=== PATIENT | female | born 1970 | race Caucasian/White ===

== ENCOUNTER 2018-01-17 19:40 | Emergency (ER) | payer OTHER, SELFPAY ==
[2018-01-17 19:53] VITALS: BP 127/80; PULSE 90; RESP 14; TEMP 36.3; O2SAT 100; BMI 27.8
[2018-01-17 20:05] LABS: Bacteria Urine None Seen; RBC Urine None Seen (0-5/HPF); WBC Urine None Seen (0-5/HPF)
--- NOTE | 2018-01-17 20:08 | DI.CT.S_ITS ---
PROCEDURE: CT KIDNEY URETER BLADDER (KUB) INDICATIONS: L. flank/pelvic pain TECHNIQUE: Noncontrast 5 mm thick sections acquired from the diaphragms to the symphysis. 5 mm thick coronal and sagittal reformats were then performed. For radiation dose reduction, the following was used: automated exposure control, adjustment of mA and/or kV according to patient size. COMPARISON: None. FINDINGS: Image quality: Excellent. Lung bases: There is mild dependent atelectasis bilaterally. Heart size is normal. Urinary system: Both kidneys are normal in size. There is a punctate nonobstructing stone within the lower pole of the left kidney. No hydronephrosis or perinephric fat stranding. Both ureters appear non-dilated throughout their expected courses. Bladder wall thickness is normal; no calcified bladder stones. Other solid organs: Liver is normal in size. Gallbladder is nondistended. Pancreas is normal in contours. Spleen is at the upper limits of normal in size measuring up to 12.7 cm. No adrenal nodules. Peritoneum and bowel: Unenhanced bowel loops demonstrate normal wall thickness and caliber. No evidence of appendicitis. No free fluid or air. Nodes and vessels: No retroperitoneal or mesenteric adenopathy by size criteria. Aorta and inferior vena cava are normal in caliber. Abdominal wall: No ventral hernias. Pelvis: The uterus is mildly prominent in size. No free pelvic fluid. No inguinal hernias or adenopathy. Bones: No suspicious bony lesions. No vertebral body compression fractures. IMPRESSION: 1. Punctate nonobstructing left renal stone. No evidence of obstructive uropathy. 2. Borderline splenomegaly. Dictated by: Josep Grubbs M.D. on 01/17/2018 at 20:47 Approved by: Josep Grubbs M.D. on 01/17/2018 at 20:54
--- NOTE | 2018-01-17 20:08 | DI.US.S_ITS ---
PROCEDURE: US PELVIC COMPLETE INDICATIONS: Left lower quadrant pain/menstrual changes TECHNIQUE: Real-time scanning was performed of the pelvic organs, with image documentation. Additional endovaginal scanning was necessary due to incomplete visualization of the adnexal and endometrial structures by transabdominal scanning. COMPARISON: None. FINDINGS: Transabdominal scanning: Limited scanning through the kidneys shows no hydronephrosis. No pathologic free abdominal or pelvic fluid. Endovaginal scanning: Uterus: Uterus is normal in size at 7.2 x 4.9 x 6.0 cm. The endometrium measures 3 mm in combined thickness. Ovaries: The right ovary was not visualized. No adnexal mass identified. Left ovary measures 1.6 x 1.5 x 3.7 cm with a few small follicles noted. There is patent arterial flow demonstrated within the left ovary. IMPRESSION: 1. Normal sonographic appearance of the left ovary. No evidence of ovarian torsion. Dictated by: Josep Grubbs M.D. on 01/17/2018 at 21:33 Approved by: Josep Grubbs M.D. on 01/17/2018 at 21:36
--- NOTE | 2018-01-17 20:11 | ED.ABDPAIN ---
HPI - Abdominal Pain <Tamia Elena PA-C - Last Filed: 01/17/18 21:59> General Chief Complaint: Abdominal Pain Stated Complaint: PAIN IN BACK AND STOMACH Time Seen by Provider: 01/17/18 20:08 Source: patient Mode of arrival: ambulatory Limitations: no limitations History of Present Illness HPI narrative: This 47-year-old female comes in due to persistent left flank and abdominal pain. She states this started 1 week ago along with urinary frequency. By 2 days later she had developed cold chills and felt bloated. She took [id number] azo and was seen at her PCM office. Advise no UTI. She states that she had continued symptoms and went back on Saturday, still abnormality found. She states that Saturday night she started to have a very heavy period, going through pad every 30 min with blood clots the 1st day. She states that she had some fatigue, lightheadedness and nausea with this. She states this lasted through yesterday, stopped abruptly today when usually her menses last for 5 days and are not this heavy. She states she was seen a 3rd time at her PCM office today. She has continued left flank pain which she can also feel in the pelvis. She has continued urinary frequency and urgency but has never had any dysuria. She has had chills without fever. She has had nausea but no vomiting. She states that she feels very tired but denies shortness of breath, chest pain, new pain in the extremities or other new symptoms on systems review. She was seen by her PCM again today. She had lab work, no specific abnormalities found though she states has been borderline anemic. She has had thyroid tested she states. She denies any other new complaints or symptoms on systems review, states no further imaging or testing was available at [facility] so came here. She denies possibility of pG ( has vas) and states she has had heavy menses with clots x 3 mos now (atypical) Related Data Home Medications Medication Instructions Recorded Confirmed levothyroxine 75 mcg PO DAILY 01/17/18 01/17/18 Allergies Allergy/AdvReac Type Severity Reaction Status Date / Time Sulfa (Sulfonamide Allergy Severe RASH, Verified 01/17/18 19:53 Antibiotics) VOMITING [SULFA (SULFONAMIDE ANTIBIOTICS)] morphine [MORPHINE] Allergy Intermediate VOMITING Verified 01/17/18 19:53 Review of Systems <Tamia Elena PA-C - Last Filed: 01/17/18 21:59> Review of Systems All systems reviewed & are unremarkable except as noted in HPI and below Exam <Tamia Elena PA-C - Last Filed: 01/17/18 21:59> Narrative Exam Narrative: GENERAL APPEARANCE: Patient sitting comfortably, in no distress. HEENT: PERRL, EOMI, no scleral icterus, conjunctivae pink NECK: Supple LUNGS: Clear to auscultation bilaterally. HEART: Rate and rhythm regular, normal S1 and S2, no S3 or S4. ABDOMEN: Soft, nondistended, bowel sounds present x 4 quadrants, no masses palpable, no hepatosplenomegaly. Moderate left CVAT and suprapubic tenderness without guarding or rebound EXTREMITIES: No edema, no cyanosis DERMATOLOGIC: No jaundice or exanthem NEUROLOGIC: Alert and oriented with normal speech and coordination Initial Vital Signs Initial Vital Signs: Vital Signs Temperature 97.3 F L 01/17/18 19:53 Pulse Rate 90 01/17/18 19:53 Respiratory Rate 14 01/17/18 19:53 Blood Pressure 127/80 H 01/17/18 19:53 Pulse Oximetry 100 01/17/18 19:53 <Raul West MD - Last Filed: 02/21/18 08:17> Initial Vital Signs Initial Vital Signs: Vital Signs Temperature 97.3 F L 01/17/18 19:53 Pulse Rate 90 01/17/18 19:53 Respiratory Rate 14 01/17/18 19:53 Blood Pressure 127/80 H 01/17/18 19:53 Pulse Oximetry 100 01/17/18 19:53 Course <Tamia Elena PA-C - Last Filed: 01/17/18 21:59> Hospital Course: Patient reported improvement in pain during her stay. She declined antiemetic because she had 1 many years ago that caused worse nausea and not sure what it was. She did not have any vomiting while here. She states that pelvic area pain has improved significantly after menses stopped, flank pain is chronically present at least at low level. She will follow up with primary care provider on this next week for further evaluation. Also advised to see gynecology for menorrhagia. She is agreeable with plan and will return if any acutely worsening symptoms over the weekend Orders Ordered: Discontinued Medications Sodium Chloride (Normal Saline 0.9%) 1,000 mls @ 1,000 mls/hr IV BOLUS ONE Stop: 01/17/18 21:07 Last Infusion: 01/17/18 21:47 Dose: 0 mls/hr Admin: 01/17/18 20:30 Dose: 1,000 mls/hr Ketorolac Tromethamine (Toradol) 30 mg IV NOW ONE Stop: 01/17/18 20:09 Last Admin: 01/17/18 20:29 Dose: 30 mg Ondansetron HCl (Zofran) 4 mg IV NOW ONE Stop: 01/17/18 20:09 Last Admin: 01/17/18 20:30 Dose: Not Given Vital Signs - 8 hr 01/17/18 19:53 Temperature 97.3 F L Pulse Rate 90 Respiratory Rate 14 Blood Pressure 127/80 H Pulse Oximetry 100 <Raul West MD - Last Filed: 02/21/18 08:17> Orders Ordered: Discontinued Medications Sodium Chloride (Normal Saline 0.9%) 1,000 mls @ 1,000 mls/hr IV BOLUS ONE Stop: 01/17/18 21:07 Last Infusion: 01/17/18 21:47 Dose: 0 mls/hr Admin: 01/17/18 20:30 Dose: 1,000 mls/hr Ketorolac Tromethamine (Toradol) 30 mg IV NOW ONE Stop: 01/17/18 20:09 Last Admin: 01/17/18 20:29 Dose: 30 mg Ondansetron HCl (Zofran) 4 mg IV NOW ONE Stop: 01/17/18 20:09 Last Admin: 01/17/18 20:30 Dose: Not Given Vital Signs - 8 hr 01/17/18 19:53 Temperature 97.3 F L Pulse Rate 90 Respiratory Rate 14 Blood Pressure 127/80 H Pulse Oximetry 100 MDM - Abdominal Pain <Tamia Elena PA-C - Last Filed: 01/17/18 21:59> Lab Data Attestation: I reviewed the patient's lab results. POC urinalysis WNL, urine negative Result diagrams: 01/17/18 20:15 01/17/18 20:15 Lab Results 01/17/18 01/17/18 01/17/18 Range/Units 19:45 20:15 20:15 WBC 7.3 (4.5-11.0) X10^3/uL RBC 4.21 (4.0-5.2) X10^6/uL Hgb 11.1 L (12.0-16.0) g/dL Hct 33.4 L (36-46) % MCV 79.3 L (80-100) fL MCH 26.5 (26-34) PG MCHC 33.4 (30-36) % RDW 15.6 H (11.6-14.8) % Plt Count 238 (150-400) X10^3/uL Neut % (Auto) 58.5 (50-75) % Lymph % (Auto) 29.6 (25-40) % Ray % (Auto) 7.5 (3-14) % Eos % (Auto) 3.1 (2-4) % Baso % (Auto) 1.3 (0-2) % Neut # (Auto) 4200 (5079-2583) /uL Sodium 137 (137-145) mmol/L Potassium 3.5 (3.4-5.1) mmol/L Chloride 101 (98-107) mmol/L Carbon Dioxide 26 (22-32) mmol/L BUN 10 (7-17) mg/dL Creatinine 0.70 (0.52-1.04) mg/dL Estimated GFR > 60.0 (>60) mL/min BUN/Creatinine Ratio 14.3 (6-22) Glucose 93 (70-100) mg/dL Calcium 9.2 (8.4-10.2) mg/dL Total Bilirubin 0.4 (0.2-1.3) mg/dL AST 22 (14-36) IU/L ALT 29 (9-52) IU/L Alkaline Phosphatase 44 (38-126) U/L Total Protein 7.2 (6.3-8.2) g/dL Albumin 4.0 (3.5-5.0) g/dL Globulin 3.2 (1.7-4.1) g/dL Albumin/Globulin Ratio 1.3 (1.0-2.8) Lipase 86 (23-300) U/L Urine RBC None seen (0-5/HPF) Urine WBC None seen (0-5/HPF) Ur Squamous Epith Cells 0-1 /hpf Urine Bacteria None seen (None) Ur Culture Indicated? Cult not indicated Micro UA Comment Microscopic normal Imaging Data CT scan - abdomen: Radiologist's impression: View Report History [address] [address] [address] Scan Report Signed Patient: Mallory Lenz MR#: [id number] : 1970 Acct:[id number] Age/Sex: 47 / F Date of Service: 01/17/18 Loc: ED Accession Number: [id number] Procedure: CT kidney ureter bladder (KUB) Ordering Provider: Tamia Elena P.A-C PROCEDURE: CT KIDNEY URETER BLADDER (KUB) INDICATIONS: L. flank/pelvic pain TECHNIQUE: Noncontrast 5 mm thick sections acquired from the diaphragms to the symphysis. 5 mm thick coronal and sagittal reformats were then performed. For radiation dose reduction, the following was used: automated exposure control, adjustment of mA and/or kV according to patient size. COMPARISON: None. FINDINGS: Image quality: Excellent. Lung bases: There is mild dependent atelectasis bilaterally. Heart size is normal. Urinary system: Both kidneys are normal in size. There is a punctate nonobstructing stone within the lower pole of the left kidney. No hydronephrosis or perinephric fat stranding. Both ureters appear non-dilated throughout their expected courses. Bladder wall thickness is normal; no calcified bladder stones. Other solid organs: Liver is normal in size. Gallbladder is nondistended. Pancreas is normal in contours. Spleen is at the upper limits of normal in size measuring up to 12.7 cm. No adrenal nodules. Peritoneum and bowel: Unenhanced bowel loops demonstrate normal wall thickness and caliber. No evidence of appendicitis. No free fluid or air. Nodes and vessels: No retroperitoneal or mesenteric adenopathy by size criteria. Aorta and inferior vena cava are normal in caliber. Abdominal wall: No ventral hernias. Pelvis: The uterus is mildly prominent in size. No free pelvic fluid. No inguinal hernias or adenopathy. Bones: No suspicious bony lesions. No vertebral body compression fractures. IMPRESSION: 1. Punctate nonobstructing left renal stone. No evidence of obstructive uropathy. 2. Borderline splenomegaly. Dictated by: Josep Grubbs M.D. on 01/17/2018 at 20:47 Approved by: Josep Grubbs M.D. on 01/17/2018 at 20:54 pelvis: Radiologist's impression: View Report History [address] [address] Ultrasound Report Signed Patient: Mallory Lenz MR#: [id number] : 1970 Acct:[id number] Age/Sex: 47 / F Date of Service: 01/17/18 Loc: ED Accession Number: [id number] Procedure: US pelvic complete Ordering Provider: Tamia Elena P.A-C PROCEDURE: US PELVIC COMPLETE INDICATIONS: Left lower quadrant pain/menstrual changes TECHNIQUE: Real-time scanning was performed of the pelvic organs, with image documentation. Additional endovaginal scanning was necessary due to incomplete visualization of the adnexal and endometrial structures by transabdominal scanning. COMPARISON: None. FINDINGS: Transabdominal scanning: Limited scanning through the kidneys shows no hydronephrosis. No pathologic free abdominal or pelvic fluid. Endovaginal scanning: Uterus: Uterus is normal in size at 7.2 x 4.9 x 6.0 cm. The endometrium measures 3 mm in combined thickness. Ovaries: The right ovary was not visualized. No adnexal mass identified. Left ovary measures 1.6 x 1.5 x 3.7 cm with a few small follicles noted. There is patent arterial flow demonstrated within the left ovary. IMPRESSION: 1. Normal sonographic appearance of the left ovary. No evidence of ovarian torsion. Dictated by: Josep Grubbs M.D. on 01/17/2018 at 21:33 Approved by: Josep Grubbs M.D. on 01/17/2018 at 21:36 <Raul West MD - Last Filed: 02/21/18 08:17> Lab Data Lab Results 01/17/18 01/17/18 01/17/18 Range/Units 19:45 20:15 20:15 WBC 7.3 (4.5-11.0) X10^3/uL RBC 4.21 (4.0-5.2) X10^6/uL Hgb 11.1 L (12.0-16.0) g/dL Hct 33.4 L (36-46) % MCV 79.3 L (80-100) fL MCH 26.5 (26-34) PG MCHC 33.4 (30-36) % RDW 15.6 H (11.6-14.8) % Plt Count 238 (150-400) X10^3/uL Neut % (Auto) 58.5 (50-75) % Lymph % (Auto) 29.6 (25-40) % Ray % (Auto) 7.5 (3-14) % Eos % (Auto) 3.1 (2-4) % Baso % (Auto) 1.3 (0-2) % Neut # (Auto) 4200 (3398-0989) /uL Sodium 137 (137-145) mmol/L Potassium 3.5 (3.4-5.1) mmol/L Chloride 101 (98-107) mmol/L Carbon Dioxide 26 (22-32) mmol/L BUN 10 (7-17) mg/dL Creatinine 0.70 (0.52-1.04) mg/dL Estimated GFR > 60.0 (>60) mL/min BUN/Creatinine Ratio 14.3 (6-22) Glucose 93 (70-100) mg/dL Calcium 9.2 (8.4-10.2) mg/dL Total Bilirubin 0.4 (0.2-1.3) mg/dL AST 22 (14-36) IU/L ALT 29 (9-52) IU/L Alkaline Phosphatase 44 (38-126) U/L Total Protein 7.2 (6.3-8.2) g/dL Albumin 4.0 (3.5-5.0) g/dL Globulin 3.2 (1.7-4.1) g/dL Albumin/Globulin Ratio 1.3 (1.0-2.8) Lipase 86 (23-300) U/L Urine RBC None seen (0-5/HPF) Urine WBC None seen (0-5/HPF) Ur Squamous Epith Cells 0-1 /hpf Urine Bacteria None seen (None) Ur Culture Indicated? Cult not indicated Micro UA Comment Microscopic normal Discharge Plan Departure Patient Disposition: Home, Self-Care Clinical Impression: Acute left flank pain, Menorrhagia Discharge Date/Time: 01/17/18 22:05 Interventions: ED Discharge Assessment Last Done: 01/17/18 22:02 Instructions: DI for Menorrhagia, DI for Flank Pain Activity Restrictions/Additional Instructions: Return as we talked about if you have any acutely worsening symptoms. From your evaluation tonight, it does not appear as though you have any acute surgical issue going on. You do have a tiny kidney stone on the left, however this is not necessarily the source of your pain and should pass on its own. You have some ovarian follicles where there could have been a cyst that ruptured, but there is no cyst or mass there now to explain your pain. Since you have had these unusually heavy periods for several months, you should follow up with your medical records custodian for further evaluation. You should also follow up with your primary hospice care consultant on the flank pain unless it resolves on its own over the weekend. Please continue over the counter pain medicine as needed. Prescriptions: No Action levothyroxine 75 mcg Tablet 75 mcg PO DAILY RF: 0 Referrals: [facility] [Provider Group] <Raul West MD - Last Filed: 02/21/18 08:17> Sign Out Provider Sign Out Attestation: The PA/ACCOUNTANT BOOKKEEPER functioned independently for the care of this pt, I was available, but not asked to participate in care. I am unable to determine appropriateness of management without personally examining the pt.
--- NOTE | 2018-01-17 20:18 | ED_ITS ---
HPI - Abdominal Pain <Tamia Elena PA-C - Last Filed: 01/17/18 21:59> General Chief Complaint: Abdominal Pain Stated Complaint: PAIN IN BACK AND STOMACH Time Seen by Provider: 01/17/18 20:08 Source: patient Mode of arrival: ambulatory Limitations: no limitations History of Present Illness HPI narrative: This 47-year-old female comes in due to persistent left flank and abdominal pain. She states this started 1 week ago along with urinary frequency. By 2 days later she had developed cold chills and felt bloated. She took [id number] azo and was seen at her PCM office. Advise no UTI. She states that she had continued symptoms and went back on Saturday, still abnormality found. She states that Saturday night she started to have a very heavy period, going through pad every 30 min with blood clots the 1st day. She states that she had some fatigue, lightheadedness and nausea with this. She states this lasted through yesterday, stopped abruptly today when usually her menses last for 5 days and are not this heavy. She states she was seen a 3rd time at her PCM office today. She has continued left flank pain which she can also feel in the pelvis. She has continued urinary frequency and urgency but has never had any dysuria. She has had chills without fever. She has had nausea but no vomiting. She states that she feels very tired but denies shortness of breath, chest pain, new pain in the extremities or other new symptoms on systems review. She was seen by her PCM again today. She had lab work, no specific abnormalities found though she states has been borderline anemic. She has had thyroid tested she states. She denies any other new complaints or symptoms on systems review, states no further imaging or testing was available at [facility] so came here. She denies possibility of pG ( has vas) and states she has had heavy menses with clots x 3 mos now (atypical) Related Data Home Medications Medication Instructions Recorded Confirmed levothyroxine 75 mcg PO DAILY 01/17/18 01/17/18 Allergies Allergy/AdvReac Type Severity Reaction Status Date / Time Sulfa (Sulfonamide Allergy Severe RASH, Verified 01/17/18 19:53 Antibiotics) VOMITING [SULFA (SULFONAMIDE ANTIBIOTICS)] morphine [MORPHINE] Allergy Intermediate VOMITING Verified 01/17/18 19:53 Review of Systems <Tamia Elena PA-C - Last Filed: 01/17/18 21:59> Review of Systems All systems reviewed & are unremarkable except as noted in HPI and below Exam <Tamia Elena PA-C - Last Filed: 01/17/18 21:59> Narrative Exam Narrative: GENERAL APPEARANCE: Patient sitting comfortably, in no distress. HEENT: PERRL, EOMI, no scleral icterus, conjunctivae pink NECK: Supple LUNGS: Clear to auscultation bilaterally. HEART: Rate and rhythm regular, normal S1 and S2, no S3 or S4. ABDOMEN: Soft, nondistended, bowel sounds present x 4 quadrants, no masses palpable, no hepatosplenomegaly. Moderate left CVAT and suprapubic tenderness without guarding or rebound EXTREMITIES: No edema, no cyanosis DERMATOLOGIC: No jaundice or exanthem NEUROLOGIC: Alert and oriented with normal speech and coordination Initial Vital Signs Initial Vital Signs: Vital Signs Temperature 97.3 F L 01/17/18 19:53 Pulse Rate 90 01/17/18 19:53 Respiratory Rate 14 01/17/18 19:53 Blood Pressure 127/80 H 01/17/18 19:53 Pulse Oximetry 100 01/17/18 19:53 <Raul West MD - Last Filed: 02/21/18 08:17> Initial Vital Signs Initial Vital Signs: Vital Signs Temperature 97.3 F L 01/17/18 19:53 Pulse Rate 90 01/17/18 19:53 Respiratory Rate 14 01/17/18 19:53 Blood Pressure 127/80 H 01/17/18 19:53 Pulse Oximetry 100 01/17/18 19:53 Course <Tamia Elena PA-C - Last Filed: 01/17/18 21:59> Hospital Course: Patient reported improvement in pain during her stay. She declined antiemetic because she had 1 many years ago that caused worse nausea and not sure what it was. She did not have any vomiting while here. She states that pelvic area pain has improved significantly after menses stopped, flank pain is chronically present at least at low level. She will follow up with primary care provider on this next week for further evaluation. Also advised to see gynecology for menorrhagia. She is agreeable with plan and will return if any acutely worsening symptoms over the weekend Orders Ordered: Discontinued Medications Sodium Chloride (Normal Saline 0.9%) 1,000 mls @ 1,000 mls/hr IV BOLUS ONE Stop: 01/17/18 21:07 Last Infusion: 01/17/18 21:47 Dose: 0 mls/hr Admin: 01/17/18 20:30 Dose: 1,000 mls/hr Ketorolac Tromethamine (Toradol) 30 mg IV NOW ONE Stop: 01/17/18 20:09 Last Admin: 01/17/18 20:29 Dose: 30 mg Ondansetron HCl (Zofran) 4 mg IV NOW ONE Stop: 01/17/18 20:09 Last Admin: 01/17/18 20:30 Dose: Not Given Vital Signs - 8 hr 01/17/18 19:53 Temperature 97.3 F L Pulse Rate 90 Respiratory Rate 14 Blood Pressure 127/80 H Pulse Oximetry 100 <Raul West MD - Last Filed: 02/21/18 08:17> Orders Ordered: Discontinued Medications Sodium Chloride (Normal Saline 0.9%) 1,000 mls @ 1,000 mls/hr IV BOLUS ONE Stop: 01/17/18 21:07 Last Infusion: 01/17/18 21:47 Dose: 0 mls/hr Admin: 01/17/18 20:30 Dose: 1,000 mls/hr Ketorolac Tromethamine (Toradol) 30 mg IV NOW ONE Stop: 01/17/18 20:09 Last Admin: 01/17/18 20:29 Dose: 30 mg Ondansetron HCl (Zofran) 4 mg IV NOW ONE Stop: 01/17/18 20:09 Last Admin: 01/17/18 20:30 Dose: Not Given Vital Signs - 8 hr 01/17/18 19:53 Temperature 97.3 F L Pulse Rate 90 Respiratory Rate 14 Blood Pressure 127/80 H Pulse Oximetry 100 MDM - Abdominal Pain <Tamia Elena PA-C - Last Filed: 01/17/18 21:59> Lab Data Attestation: I reviewed the patient's lab results. POC urinalysis WNL, urine negative Result diagrams: 01/17/18 20:15 01/17/18 20:15 Lab Results 01/17/18 01/17/18 01/17/18 Range/Units 19:45 20:15 20:15 WBC 7.3 (4.5-11.0) X10^3/uL RBC 4.21 (4.0-5.2) X10^6/uL Hgb 11.1 L (12.0-16.0) g/dL Hct 33.4 L (36-46) % MCV 79.3 L (80-100) fL MCH 26.5 (26-34) PG MCHC 33.4 (30-36) % RDW 15.6 H (11.6-14.8) % Plt Count 238 (150-400) X10^3/uL Neut % (Auto) 58.5 (50-75) % Lymph % (Auto) 29.6 (25-40) % [place] % (Auto) 7.5 (3-14) % Eos % (Auto) 3.1 (2-4) % Baso % (Auto) 1.3 (0-2) % Neut # (Auto) 4200 (9294-7078) /uL Sodium 137 (137-145) mmol/L Potassium 3.5 (3.4-5.1) mmol/L Chloride 101 (98-107) mmol/L Carbon Dioxide 26 (22-32) mmol/L BUN 10 (7-17) mg/dL Creatinine 0.70 (0.52-1.04) mg/dL Estimated GFR > 60.0 (>60) mL/min BUN/Creatinine Ratio 14.3 (6-22) Glucose 93 (70-100) mg/dL Calcium 9.2 (8.4-10.2) mg/dL Total Bilirubin 0.4 (0.2-1.3) mg/dL AST 22 (14-36) IU/L ALT 29 (9-52) IU/L Alkaline Phosphatase 44 (38-126) U/L Total Protein 7.2 (6.3-8.2) g/dL Albumin 4.0 (3.5-5.0) g/dL Globulin 3.2 (1.7-4.1) g/dL Albumin/Globulin Ratio 1.3 (1.0-2.8) Lipase 86 (23-300) U/L Urine RBC None seen (0-5/HPF) Urine WBC None seen (0-5/HPF) Ur Squamous Epith Cells 0-1 /hpf Urine Bacteria None seen (None) Ur Culture Indicated? Cult not indicated Micro UA Comment Microscopic normal Imaging Data CT scan - abdomen: Radiologist's impression: View Report History [address] [address] [address] Scan Report Signed Patient: Mallory Lenz MR#: [id number] : 1970 Acct:[id number] Age/Sex: 47 / F Date of Service: 01/17/18 Loc: ED Accession Number: [id number] Procedure: CT kidney ureter bladder (KUB) Ordering Provider: Tamia Elena P.A-C PROCEDURE: CT KIDNEY URETER BLADDER (KUB) INDICATIONS: L. flank/pelvic pain TECHNIQUE: Noncontrast 5 mm thick sections acquired from the diaphragms to the symphysis. 5 mm thick coronal and sagittal reformats were then performed. For radiation dose reduction, the following was used: automated exposure control, adjustment of mA and/or kV according to patient size. COMPARISON: None. FINDINGS: Image quality: Excellent. Lung bases: There is mild dependent atelectasis bilaterally. Heart size is normal. Urinary system: Both kidneys are normal in size. There is a punctate nonobstructing stone within the lower pole of the left kidney. No hydronephrosis or perinephric fat stranding. Both ureters appear non-dilated throughout their expected courses. Bladder wall thickness is normal; no calcified bladder stones. Other solid organs: Liver is normal in size. Gallbladder is nondistended. Pancreas is normal in contours. Spleen is at the upper limits of normal in size measuring up to 12.7 cm. No adrenal nodules. Peritoneum and bowel: Unenhanced bowel loops demonstrate normal wall thickness and caliber. No evidence of appendicitis. No free fluid or air. Nodes and vessels: No retroperitoneal or mesenteric adenopathy by size criteria. Aorta and inferior vena cava are normal in caliber. Abdominal wall: No ventral hernias. Pelvis: The uterus is mildly prominent in size. No free pelvic fluid. No inguinal hernias or adenopathy. Bones: No suspicious bony lesions. No vertebral body compression fractures. IMPRESSION: 1. Punctate nonobstructing left renal stone. No evidence of obstructive uropathy. 2. Borderline splenomegaly. Dictated by: Josep Grubbs M.D. on 01/17/2018 at 20:47 Approved by: Josep Grubbs M.D. on 01/17/2018 at 20:54 pelvis: Radiologist's impression: View Report History [address] [address] Ultrasound Report Signed Patient: Mallory Lenz MR#: [id number] : 1970 Acct:[id number] Age/Sex: 47 / F Date of Service: 01/17/18 Loc: ED Accession Number: [id number] Procedure: US pelvic complete Ordering Provider: Tamia Elena P.A-C PROCEDURE: US PELVIC COMPLETE INDICATIONS: Left lower quadrant pain/menstrual changes TECHNIQUE: Real-time scanning was performed of the pelvic organs, with image documentation. Additional endovaginal scanning was necessary due to incomplete visualization of the adnexal and endometrial structures by transabdominal scanning. COMPARISON: None. FINDINGS: Transabdominal scanning: Limited scanning through the kidneys shows no hydronephrosis. No pathologic free abdominal or pelvic fluid. Endovaginal scanning: Uterus: Uterus is normal in size at 7.2 x 4.9 x 6.0 cm. The endometrium measures 3 mm in combined thickness. Ovaries: The right ovary was not visualized. No adnexal mass identified. Left ovary measures 1.6 x 1.5 x 3.7 cm with a few small follicles noted. There is patent arterial flow demonstrated within the left ovary. IMPRESSION: 1. Normal sonographic appearance of the left ovary. No evidence of ovarian torsion. Dictated by: Josep Grubbs M.D. on 01/17/2018 at 21:33 Approved by: Josep Grubbs M.D. on 01/17/2018 at 21:36 <Raul West MD - Last Filed: 02/21/18 08:17> Lab Data Lab Results 01/17/18 01/17/18 01/17/18 Range/Units 19:45 20:15 20:15 WBC 7.3 (4.5-11.0) X10^3/uL RBC 4.21 (4.0-5.2) X10^6/uL Hgb 11.1 L (12.0-16.0) g/dL Hct 33.4 L (36-46) % MCV 79.3 L (80-100) fL MCH 26.5 (26-34) PG MCHC 33.4 (30-36) % RDW 15.6 H (11.6-14.8) % Plt Count 238 (150-400) X10^3/uL Neut % (Auto) 58.5 (50-75) % Lymph % (Auto) 29.6 (25-40) % [place] % (Auto) 7.5 (3-14) % Eos % (Auto) 3.1 (2-4) % Baso % (Auto) 1.3 (0-2) % Neut # (Auto) 4200 (6780-2938) /uL Sodium 137 (137-145) mmol/L Potassium 3.5 (3.4-5.1) mmol/L Chloride 101 (98-107) mmol/L Carbon Dioxide 26 (22-32) mmol/L BUN 10 (7-17) mg/dL Creatinine 0.70 (0.52-1.04) mg/dL Estimated GFR > 60.0 (>60) mL/min BUN/Creatinine Ratio 14.3 (6-22) Glucose 93 (70-100) mg/dL Calcium 9.2 (8.4-10.2) mg/dL Total Bilirubin 0.4 (0.2-1.3) mg/dL AST 22 (14-36) IU/L ALT 29 (9-52) IU/L Alkaline Phosphatase 44 (38-126) U/L Total Protein 7.2 (6.3-8.2) g/dL Albumin 4.0 (3.5-5.0) g/dL Globulin 3.2 (1.7-4.1) g/dL Albumin/Globulin Ratio 1.3 (1.0-2.8) Lipase 86 (23-300) U/L Urine RBC None seen (0-5/HPF) Urine WBC None seen (0-5/HPF) Ur Squamous Epith Cells 0-1 /hpf Urine Bacteria None seen (None) Ur Culture Indicated? Cult not indicated Micro UA Comment Microscopic normal Discharge Plan Departure Patient Disposition: Home, Self-Care Clinical Impression: Acute left flank pain, Menorrhagia Discharge Date/Time: 01/17/18 22:05 Interventions: ED Discharge Assessment Last Done: 01/17/18 22:02 Instructions: DI for Menorrhagia, DI for Flank Pain Activity Restrictions/Additional Instructions: Return as we talked about if you have any acutely worsening symptoms. From your evaluation tonight, it does not appear as though you have any acute surgical issue going on. You do have a tiny kidney stone on the left, however this is not necessarily the source of your pain and should pass on its own. You have some ovarian follicles where there could have been a cyst that ruptured, but there is no cyst or mass there now to explain your pain. Since you have had these unusually heavy periods for several months, you should follow up with your finance lecturer for further evaluation. You should also follow up with your primary customer care team coach on the flank pain unless it resolves on its own over the weekend. Please continue over the counter pain medicine as needed. Prescriptions: No Action levothyroxine 75 mcg Tablet 75 mcg PO DAILY RF: 0 [facility]] <Raul West MD - Last Filed: 02/21/18 08:17> Sign Out Provider Sign Out Attestation: The PA/PREBOARDER functioned independently for the care of this pt, I was available, but not asked to participate in care. I am unable to determine appropriateness of management without personally examining the pt.
[2018-01-17 20:22] LABS: Add Manual Diff / Slide Review NO; Basophils Percent Auto 1.3 % (0-2); Eosinophils Percent Auto 3.1 % (2-4); Hematocrit 33.4 % (36-46); Hemoglobin 11.1 g/dL (12.0-16.0); Lymphocytes Percent Auto 29.6 % (25-40); Mean Corpuscular HGB Conc 33.4 % (30-36); Mean Corpuscular Hemoglobin 26.5 PG (26-34); Mean Corpuscular Volume 79.3 fL (80-100); Monocytes Percent Auto 7.5 % (3-14); Neutrophils Absolute Auto 4200 /uL (3000-5900); Neutrophils Percent Auto 58.5 % (50-75); Platelet Count 238 X10^3/uL (150-400); Red Blood Cell Count 4.21 X10^6/uL (4.0-5.2); Red Cell Distribution Width 15.6 % (11.6-14.8); White Blood Cell Count 7.3 X10^3/uL (4.5-11.0)
[2018-01-17 20:27] LABS: Culture Indicated Urine Cult Not Indicated; Squamous Epithelial Cell Urine 0-1 /HPF; Urine Comments Microscopic Normal
[2018-01-17] MEDS: KETOROLAC 60 MG/2 ML VIAL 30 MG IV (20:29)
[2018-01-17] MEDS: SODIUM CHLORIDE 0.9% 1,000 ML 1000 ML IV (20:30)
[2018-01-17 20:35] LABS: Alanine Aminotransferase 29 IU/L (9-52); Albumin Globulin Ratio 1.3 (1.0-2.8); Alkaline Phosphatase 44 U/L (38-126); Aspartate Aminotransferase 22 IU/L (14-36); BUN Creatinine Ratio 14.3 (6-22); Bilirubin Total 0.4 mg/dL (0.2-1.3); Blood Urea Nitrogen 10 mg/dL (7-17); Calcium 9.2 mg/dL (8.4-10.2); Carbon Dioxide 26 mmol/L (22-32); Chloride 101 mmol/L (98-107); Estimated Glomerular Filt Rate > 60.0 mL/min (>60); Globulin 3.2 g/dL (1.7-4.1); Glucose 93 mg/dL (70-100); HEMOLYSIS < 15 (0-50); Lipase 86 U/L (23-300); Potassium 3.5 mmol/L (3.4-5.1); Sodium 137 mmol/L (137-145); Total Protein 7.2 g/dL (6.3-8.2)
[2018-01-17 22:02] VITALS: BP 115/70; PULSE 63; RESP 15; O2SAT 98
== END 2018-01-17 22:05 | disposition home or self-care (01) ==
PROVIDERS: Emergency Medicine; Emergency Provider Internal Medicine
DX: R10.9 Unspecified abdominal pain (principal); N92.0 Excessive and frequent menstruation with regular cycle
CPT/HCPCS: 36591; 74176; 76830; 76856; 80053; 81003; 81015; 81025; 83690; 85025; 96361; 96374; 96375; 99283; 99284; J1885

== ENCOUNTER 2019-04-26 08:42 | Emergency (ER) | payer OTHER, SELFPAY ==
[2019-04-26] VITALS (7 sets, daily range): BP systolic 107–127; BP diastolic 59–93; PULSE 68–88; RESP 9–21; TEMP 36.8; O2SAT 98–100; BMI 29.9
--- NOTE | 2019-04-26 08:43 | ED_ITS ---
HPI - Chest Pain General Chief Complaint: Chest Pain Stated Complaint: Chest pain Time Seen by Provider: 04/26/19 08:42 Source: patient Mode of arrival: Ambulatory Limitations: no limitations History of Present Illness HPI narrative: 49-year-old female nonsmoker with history of hypothyroid presents with sharp stabbing anterior chest pain since about 2am. She states it woke her up. She denies provocation or palliation. She denies associated symptoms such as dizziness, weakness or lightheadedness. She has no diaphoresis, nausea or vomiting. She denies any recent travel, injury, surgery or history of blood sel[place] ts. She denies any recent illness, runny nose, sore throat or cough. She does state that she has had these episodes off and on for the past few months, they always happen at night. Related Data Home Medications Medication Instructions Recorded Confirmed levothyroxine 75 mcg PO DAILY 01/17/18 01/17/18 Allergies Allergy/AdvReac Type Severity Reaction Status Date / Time Sulfa (Sulfonamide Allergy Severe RASH, Verified 04/26/19 08:53 Antibiotics) VOMITING [SULFA (SULFONAMIDE ANTIBIOTICS)] morphine [MORPHINE] Allergy Intermediate VOMITING Verified 04/26/19 08:53 Review of Systems Constitutional Constitutional: Denies chills, Denies fatigue, Denies fever(s), Denies frequent falls, Denies lethargy and Denies weakness Eyes Eyes: Denies change in vision, Denies eye discharge, Denies irritation and Denies loss of vision ENT Ears, Nose, Mouth, and Throat: Denies change in voice, Denies dizziness, Denies neck pain, Denies sore throat and Denies throat swelling Cardiovascular Cardiovascular: Reports chest pain, Denies irregular heart rhythm, Denies lightheadedness, Denies palpitations, Denies dyspnea, Denies dyspnea on exertion and Denies orthopnea Respiratory Respiratory: Denies cough, Denies dyspnea, Denies dyspnea on exertion and Denies wheezing Gastrointestinal Gastrointestinal: Denies abdominal pain, Denies change in bowel habits, Denies diarrhea, Denies nausea and Denies vomiting Genitourinary Genitourinary: Denies hematuria, Denies flank pain, Denies urinary incontinence and Denies urinary urgency Musculoskeletal Musculoskeletal: Denies back pain, Denies muscle weakness, Denies neck pain, Denies numbness and Denies tingling Integumentary/Breasts Skin/Breast: Denies pruritus, Denies erythema, Denies rash and Denies wounds Neurologic Neurologic: Denies behavioral changes, Denies confusion, Denies dizziness, Denies frequent falls, Denies loss of vision, Denies numbness, Denies tingling and Denies weakness Psychiatric Psychiatric: Denies anxiety, Denies behavioral changes, Denies confusion, Denies depression, Denies homicidal ideation and Denies suicidal ideation Endocrine Endocrine: Denies fatigue, Denies flushing and Denies palpitations Hematologic/Lymphatic Hematologic/Lymphatic: Denies easy bruising Allergic/Immunologic Allergic/Immunologic: Denies urticaria, Denies throat swelling and Denies wheezing [facility] Medical History Anemia (Acute) Ankle fracture (Resolved) Graves disease (Chronic) Surgical History H/O thyroidectomy (Resolved) Social History Smoking Status: Never smoker Social History Smoking Status: Never smoker Exam Narrative Exam Narrative: GENERAL: [49] year old patient appears stated age. Well- nourished, well-developed patient, in mild distress. HEAD: Atraumatic. Normocephalic. EYES: Pupils equal round and reactive. Extraocular motions intact. No scleral icterus. No injection or drainage. ENT: Nose without bleeding, purulent drainage. Throat without erythema, t onsillar hypertrophy or exudate. Airway patent. NECK: Trachea midline. Non tender CARDIOVASCULAR: Regular rate and rhythm without murmurs, gallops, or rubs. RESPIRATORY: Clear to auscultation. Breath sounds equal bilaterally. No wheezes, rales, or rhonchi. GASTROINTESTINAL: Abdomen soft, non-tender, nondistended. EXTREMITIES: No edema or joint tenderness. BACK: Nontender without deformity or crepitance. No flank tenderness. NEURO: AOx3. SKIN: No rash or erythema of visible areas Initial Vital Signs Initial Vital Signs: Vital Signs Temperature 98.3 F 04/26/19 08:42 Pulse Rate 88 04/26/19 08:42 Respiratory Rate 18 04/26/19 08:42 Blood Pressure 127/93 H 04/26/19 08:42 Pulse Oximetry 100 04/26/19 08:42 Course Orders Ordered: ED Orders 04/26/19 09:53 US abdomen complete Stat Discontinued Medications Aspirin (Aspirin Chew) 324 mg PO NOW ONE Stop: 04/26/19 08:50 Last Admin: 04/26/19 09:23 Dose: 324 mg Documented by: HAYLEE Al Hydrox/Mg Hydrox/Simethicone 20 ml/ Lidocaine HCl 15 ml 0 ml PO NOW ONE Stop: 04/26/19 09:54 Last Admin: 04/26/19 10:29 Dose: 35 ml Documented by: HAYLEE Sodium Chloride (Normal Saline 0.9%) 1,000 mls @ 150 mls/hr IV CONT IGNACIO Last Infusion: 04/26/19 12:35 Dose: 0 mls/hr Documented by: Admin: 04/26/19 09:24 Dose: 150 mls/hr Documented by: HAYLEE Vital Signs Vital signs: Vital Signs - 8 hr 04/26/19 10:45 04/26/19 11:00 04/26/19 11:30 Pulse Rate 73 76 70 Respiratory Rate 17 18 9 L Blood Pressure [Left Arm] 115/71 111/59 L 107/65 Pulse Oximetry 100 100 100 04/26/19 11:43 Pulse Rate 68 Respiratory Rate 16 Blood Pressure [Left Arm] 107/65 Pulse Oximetry MDM - Chest Pain Lab Data Result diagrams: 04/26/19 09:00 04/26/19 09:00 Labs: Lab Results 04/26/19 04/26/19 04/26/19 Range/Units 09:00 09:00 09:00 WBC 5.7 (4.5-11.0) X10^3/uL RBC 4.30 (4.0-5.2) X10^6/uL Hgb 9.9 L (12.0-16.0) g/dL Hct 30.4 L (36-46) % MCV 70.7 L (80-100) fL MCH 23.0 L (26-34) PG MCHC 32.5 (30-36) % RDW 17.7 H (11.6-14.8) % Plt Count 279 (150-400) X10^3/uL Neut % (Auto) 59.9 (50-75) % Lymph % (Auto) 29.1 (25-40) % [place] % (Auto) 7.1 (3-14) % Eos % (Auto) 2.3 (2-4) % Baso % (Auto) 1.6 (0-2) % Neut # (Auto) 3400 (0524-0711) /uL Lymph # (Auto) 1700 (1558-9135) /uL [place] # (Auto) 400 (0-900) /uL Eos # (Auto) 100 (0-450) /uL Baso # (Auto) 100 (0-100) /uL D-Dimer < 200 (<230) ng/mL Sodium 138 (137-145) mmol/L Potassium 3.9 (3.4-5.1) mmol/L Chloride 104 (98-107) mmol/L Carbon Dioxide 24 (22-32) mmol/L BUN 11 (7-17) mg/dL Creatinine 0.70 (0.52-1.04) mg/dL Estimated GFR > 60.0 (>60) mL/min BUN/Creatinine Ratio 15.7 (6-22) Glucose 97 (70-100) mg/dL Calcium 8.9 (8.4-10.2) mg/dL Magnesium 1.9 (1.6-2.3) mg/dL Total Bilirubin 0.4 (0.2-1.3) mg/dL AST 22 (14-36) IU/L ALT 13 (9-52) IU/L Alkaline Phosphatase 48 (38-126) U/L Total Creatine Kinase 65 (30-135) U/L CK-MB (CK-2) TNP CK-MB (CK-2) Rel Index TNP Troponin I < 0.012 (0.01-0.034) ng/mL B-Natriuretic Peptide < 100 (<100) Total Protein 7.6 (6.3-8.2) g/dL Albumin 4.1 (3.5-5.0) g/dL Globulin 3.5 (1.7-4.1) g/dL Albumin/Globulin Ratio 1.2 (1.0-2.8) Lipase 61 (23-300) U/L Procalcitonin (<0.5) ng/mL TSH (0.47-4.68) uIU/mL Thyroxine (T4) (5.5-11.0) ug/dL 09/22/19 09/22/19 Range/Units 09:00 09:00 WBC (4.5-11.0) X10^3/uL RBC (4.0-5.2) X10^6/uL Hgb (12.0-16.0) g/dL Hct (36-46) % MCV (80-100) fL MCH (26-34) PG MCHC (30-36) % RDW (11.6-14.8) % Plt Count (150-400) X10^3/uL Neut % (Auto) (50-75) % Lymph % (Auto) (25-40) % [place] % (Auto) (3-14) % Eos % (Auto) (2-4) % Baso % (Auto) (0-2) % Neut # (Auto) (1305-7247) /uL Lymph # (Auto) (7891-9114) /uL [place] # (Auto) (0-900) /uL Eos # (Auto) (0-450) /uL Baso # (Auto) (0-100) /uL D-Dimer (<230) ng/mL Sodium (137-145) mmol/L Potassium (3.4-5.1) mmol/L Chloride (98-107) mmol/L Carbon Dioxide (22-32) mmol/L BUN (7-17) mg/dL Creatinine (0.52-1.04) mg/dL Estimated GFR (>60) mL/min BUN/Creatinine Ratio (6-22) Glucose (70-100) mg/dL Calcium (8.4-10.2) mg/dL Magnesium (1.6-2.3) mg/dL Total Bilirubin (0.2-1.3) mg/dL AST (14-36) IU/L ALT (9-52) IU/L Alkaline Phosphatase (38-126) U/L Total Creatine Kinase (30-135) U/L CK-MB (CK-2) CK-MB (CK-2) Rel Index Troponin I (0.01-0.034) ng/mL B-Natriuretic Peptide (<100) Total Protein (6.3-8.2) g/dL Albumin (3.5-5.0) g/dL Globulin (1.7-4.1) g/dL Albumin/Globulin Ratio (1.0-2.8) Lipase (23-300) U/L Procalcitonin < 0.05 (<0.5) ng/mL TSH 4.43 (0.47-4.68) uIU/mL Thyroxine (T4) 11.00 (5.5-11.0) ug/dL Urine Dip Bedside Urine Glucose Negative Bedside Urine Bilirubin - Negative Bedside Urine Ketone - Negative Urine Specific [place] 1.010 Bedside Urine Occult Blood - Negative Bedside Urine pH 6.0 Bedside Urine Protein - Negative Bedside Urine Urobilinogen - Negative Bedside Urine Nitrite - Negative Bedside Urine Leukocytes - Negative Esterase ECG Data Attestation: I personally reviewed and interpreted this ECG as follows: Prior ECG tracings: not available for review Interpretation: EKG is normal sinus rhythm rate [87 ] and free of any signs of ischemia or ectopy. No ST segmental elevation or depression. No T wave inversions MDM Narrative Medical decision making narrative: Multiple etiologies for patient's symptoms considered including: [Cardiac ischemia, thought less likely given low heart score, and negative troponin and nonischemic EKG. Pulmonary embolism considered but thought less likely given lack of tachycardia, hypoxia, radiation of pain and a negative D-dimer. A] Patient's symptoms improved or duration of stay with above-stated therapies. Findings and discharge diagnosis discussed with patient/family followed by verbalization of understanding Return precautions discussed with patient/family whom verbalize understanding. Discharge Plan Departure Patient Disposition: Home Clinical Impression: Atypical chest pain Discharge Date/Time: 04/26/19 12:45 Instructions: DI for Atypical Chest Pain Activity Restrictions/Additional Instructions: *You have been diagnosed with [ atypical chest pain ] *What to do: *Take medications as directed *Follow up with your primary care provider in 2-3 days, call for an appointment. Let them know you were seen in the Emergency Department and that we ask that you be seen in follow up *Return to ER if you should have any new, worsening or concerning symptoms Prescriptions: No Action levothyroxine 75 mcg Tablet 75 mcg PO DAILY RF: 0 Referrals: Cynthia Khalil MD [Primary Care Provider] -
--- NOTE | 2019-04-26 08:50 | DI.RAD.S_ITS ---
PROCEDURE: XR CHEST 2V INDICATIONS: chest pain TECHNIQUE: 2 views of the chest were acquired. COMPARISON: None. FINDINGS: Surgical changes and devices: There are surgical clips in the neck region. Lungs and pleura: Lungs are clear. No pleural effusions or pneumothorax. Mediastinum: Mediastinal contours are normal. Heart size is normal. Bones and chest wall: No suspicious bony abnormalities. Soft tissues appear unremarkable. IMPRESSION: 1. No acute cardiopulmonary disease. Dictated by: Josep Grubbs M.D. on 04/26/2019 at 8:26 Approved by: Josep Grubbs M.D. on 04/26/2019 at 8:26
--- NOTE | 2019-04-26 09:10 | PC.NURSE ---
pt reports, with chest heaviness, pain free at this time, also with abdominal distentions +nausea, denies vomiting, bm yesterday normal for pt. had ct done 2 weeks ago, dx with cyst with kidney and ovary. schedule for u/s next week.
[2019-04-26] MEDS: ASPIRIN 81 MG CHEW TAB 324 MG PO (09:23)
[2019-04-26 09:24] LABS: Add Manual Diff / Slide Review NO; Basophils Absolute Auto 100 /uL (0-100); Basophils Percent Auto 1.6 % (0-2); Eosinophils Absolute Auto 100 /uL (0-450); Eosinophils Percent Auto 2.3 % (2-4); Hematocrit 30.4 % (36-46); Hemoglobin 9.9 g/dL (12.0-16.0); Lymphocytes Absolute Auto 1700 /uL (1100-4500); Lymphocytes Percent Auto 29.1 % (25-40); Mean Corpuscular HGB Conc 32.5 % (30-36); Mean Corpuscular Volume 70.7 fL (80-100); Monocytes Absolute Auto 400 /uL (0-900); Monocytes Percent Auto 7.1 % (3-14); Neutrophils Absolute Auto 3400 /uL (1500-7000); Neutrophils Percent Auto 59.9 % (50-75); Platelet Count 279 X10^3/uL (150-400); Red Cell Distribution Width 17.7 % (11.6-14.8); White Blood Cell Count 5.7 X10^3/uL (4.5-11.0)
[2019-04-26] MEDS: SODIUM CHLORIDE 0.9% 1,000 ML 150 ML IV (09:24)
[2019-04-26 09:35] LABS: D Dimer < 200 ng/mL (<230)
[2019-04-26 09:36] LABS: Alanine Aminotransferase 13 IU/L (9-52); Albumin 4.1 g/dL (3.5-5.0); Albumin Globulin Ratio 1.2 (1.0-2.8); Alkaline Phosphatase 48 U/L (38-126); Aspartate Aminotransferase 22 IU/L (14-36); BUN Creatinine Ratio 15.7 (6-22); Bilirubin Total 0.4 mg/dL (0.2-1.3); Blood Urea Nitrogen 11 mg/dL (7-17); Calcium 8.9 mg/dL (8.4-10.2); Carbon Dioxide 24 mmol/L (22-32); Chloride 104 mmol/L (98-107); Creatine Kinase 65 U/L (30-135); Estimated Glomerular Filt Rate > 60.0 mL/min (>60); Globulin 3.5 g/dL (1.7-4.1); Glucose 97 mg/dL (70-100); HEMOLYSIS < 15 (0-50); Lipase 61 U/L (23-300); Magnesium 1.9 mg/dL (1.6-2.3); Potassium 3.9 mmol/L (3.4-5.1); Sodium 138 mmol/L (137-145); Total Protein 7.6 g/dL (6.3-8.2)
[2019-04-26 09:47] LABS: B Type Natriuretic Peptide < 100 (<100); Troponin I < 0.012 ng/mL (0.01-0.034)
--- NOTE | 2019-04-26 09:53 | DI.US.S_ITS ---
PROCEDURE: US ABDOMEN COMPLETE INDICATIONS: RUQ PAIN TECHNIQUE: Real-time scanning was performed of the abdominal and retroperitoneal organs, with image documentation. COMPARISON: [facility], CT, CT KIDNEY URETER BLADDER (KUB), 01/17/2018, 20:10. FINDINGS: Liver: Liver is normal in size and slightly increased in echogenicity suggestive of fatty infiltration. Gallbladder: No gallstones, gallbladder wall thickening, or pericholecystic fluid. Biliary ducts: Intrahepatic bile ducts are non-dilated. Extrahepatic bile duct caliber measures 3-4 mm. Normal is 6-7 mm or less in diameter, or 10 mm or less post-cholecystectomy. Pancreas: Visualized portions of the pancreas are sonographically normal. Spleen: Spleen is normal in size and homogeneous in echotexture. Kidneys: Right kidney measures 11.5 cm long; left kidney measures 10.8 cm long. No hydronephrosis. There is a parapelvic cyst in the left kidney measuring up to 1.8 cm. Aorta: Visualized aorta is normal in caliber at less than 3 cm. Iliacs: Proximal common iliac arteries are normal in caliber at less than 2.5 cm. IVC: Intrahepatic inferior vena cava is patent. Miscellaneous: No free abdominal fluid. IMPRESSION: 1. No evidence of cholelithiasis or cholecystitis. 2. Increased hepatic echogenicity suggestive of steatosis. Dictated by: Josep Grubbs M.D. on 04/26/2019 at 10:37 Approved by: Josep Grubbs M.D. on 04/26/2019 at 10:40
[2019-04-26 10:02] LABS: Procalcitonin < 0.05 ng/mL (<0.5)
[2019-04-26 10:07] LABS: Thyroid Stimulating Hormone 4.43 uIU/mL (0.47-4.68)
[2019-04-26] MEDS: MAG HYDROX/ALUMINUM/SIMETH SUS 20 ML, LIDOCAINE VISCOUS 2% 15 ML PO (10:29)
== END 2019-04-26 12:45 | disposition home or self-care (01) ==
PROVIDERS: Emergency Provider Emergency Medicine; PCP Family Medicine
DX: R07.89 Other chest pain (principal)
CPT/HCPCS: 36591; 71046; 76700; 80053; 81003; 82550; 83690; 83735; 83880; 84145; 84436; 84443; 84484; 85025; 85379; 93005; 93010; 99283; 99285

== ENCOUNTER 2019-06-21 05:29 | Emergency (ER) | payer OTHER, SELFPAY ==
[2019-06-21 05:41] VITALS: BP 131/73; PULSE 81; RESP 16; TEMP 36.5; O2SAT 98; BMI 28.3
--- NOTE | 2019-06-21 05:43 | ED.ABDPAIN ---
HPI - Abdominal Pain General Chief Complaint: Abdominal Pain Stated Complaint: kidney problems Time Seen by Provider: 06/21/19 05:32 Source: patient Mode of arrival: Ambulatory Limitations: no limitations History of Present Illness HPI narrative: This is a 49-year-old female who comes to the emergency department with complaint of frequency, urgency and dysuria since a week ago Saturday. Patient has not had fevers. She said may pull some mild nausea. She has had flank pain right and left-sided but greater on the right. She has had some mild pressure in her suprapubic area. Patient states that she has had similar symptoms in the and had kidney infections in the past. She states she has not had resistance to antibiotics. She denies any vaginal discharge. She did start her menses in the last 3 days. She states she had some mild diarrhea followed by some mild constipation. She has not been having any other issues with bowel movements. She denies lightheadedness, passing out, no chest pain or pressure. Related Data Home Medications Medication Instructions Recorded Confirmed levothyroxine 75 mcg PO DAILY 01/17/18 01/17/18 Previous Rx's Medication Instructions Recorded cephalexin [Keflex] 500 mg PO BID #20 cap 06/21/19 Allergies Allergy/AdvReac Type Severity Reaction Status Date / Time Sulfa (Sulfonamide Allergy Severe RASH, Verified 04/26/19 08:53 Antibiotics) VOMITING [SULFA (SULFONAMIDE ANTIBIOTICS)] morphine [MORPHINE] Allergy Intermediate VOMITING Verified 04/26/19 08:53 Review of Systems Review of Systems ROS Unobtainable: All systems reviewed & are unremarkable except as noted in HPI and below Patient History Medical History Anemia (Acute) Ankle fracture (Resolved) Graves disease (Chronic) Surgical History H/O thyroidectomy (Resolved) Social History Smoking Status: Never smoker alcohol intake frequency: 0-2 drinks per day Substance Use Type: does not use Exam Narrative Exam Narrative: GENERAL: Alert and oriented x three, mildly obese female in mild distress. HEENT: Head normocephalic, atraumatic, EOMI, pupils reactive, face symmetric, moist mucous membranes NECK: Supple, full range of motion CARDIOVASCULAR: Regular rate and rhythm without murmurs, rubs or gallops. RESPIRATORY: Breath sounds equal bilaterally, no wheezes rales or rhonchi. ABDOMEN: Soft, generalized mild tenderness greatest at the suprapubic region. Normoactive bowel sounds all 4 quadrants. No guarding or rebound, rigidity, no mass : mild bilateral CVA tenderness EXTREMITIES: Normal range of motion, no clubbing or edema. Neurovascularly intact NEUROLOGICAL: Cranial nerves II through XII grossly intact. Moving all extremities SKIN: Warm, dry, no petechiae, no rashes or lesions. Initial Vital Signs Initial Vital Signs: Vital Signs Temperature 97.7 F 06/21/19 05:41 Pulse Rate 81 06/21/19 05:41 Respiratory Rate 16 06/21/19 05:41 Blood Pressure 131/73 06/21/19 05:41 Pulse Oximetry 98 06/21/19 05:41 Course Orders Ordered: ED Orders 06/21/19 05:35 Urine Microscopic Stat Discontinued Medications Cefazolin Sodium (Keflex 250 Mg Prepack) 1 bottle MISC SEEINSTR ONE Stop: 06/21/19 05:50 Last Admin: 06/21/19 06:01 Dose: 500 mg Documented by: BRENDA Phenazopyridine HCl (Pyridium 100mg Prepack) 1 bottle MISC SEEINSTR ONE Stop: 06/21/19 05:50 Last Admin: 06/21/19 06:01 Dose: 1 bottle Documented by: BRENDA Vital Signs Vital signs: Vital Signs - 8 hr 06/21/19 05:41 Temperature 97.7 F Pulse Rate 81 Respiratory Rate 16 Blood Pressure 131/73 Pulse Oximetry 98 MDM - Abdominal Pain Lab Data Labs: Lab Results 06/21/19 Range/Units 05:35 Urine RBC 0-1/hpf (0-5/HPF) Urine WBC 0-1/hpf (0-5/HPF) Ur Squamous Epith Cells 1-5 /hpf (0-5/HPF) Urine Bacteria Occasional (0-1) (None) Ur Culture Indicated? Cult not indicated Point of care testing: Point of Care Testing Test Results Negative Urine Dip Bedside Urine Glucose Negative Bedside Urine Bilirubin - Negative Bedside Urine Ketone - Negative Urine Specific [place] 1.005 Bedside Urine Occult Blood ++ Bedside Urine pH 7.0 Bedside Urine Protein - Negative Bedside Urine Urobilinogen - Negative Bedside Urine Nitrite - Negative Bedside Urine Leukocytes - Negative Esterase MDM Narrative Medical decision making narrative: Discussed with patient her point of care urine shows hematuria which is expected and she is on her menses. It did not show nitrates or leuks. She does have very clear clinical like symptoms and has not had recurrent negative urine cultures in the past so we discussed possibly treating her is a clinical UTI and sending her urine for culture. We did also discuss the possibility of an interstitial cystitis versus other causes. Patient and I discussed doing a further workup but she defers with plan to do antibiotics treating as a pyelonephritis, we did discuss that there are potentially other intra-abdominal causes him that he needs to return if she is having any worsening symptoms. Patient feels comfortable with this plan. Discharge Plan Departure Patient Disposition: Home Clinical Impression: Pyelonephritis Discharge Date/Time: 06/21/19 06:04 Instructions: DI for Kidney Infection Activity Restrictions/Additional Instructions: Follow-up in the next 48-72 hours if you are not having any improvement in symptoms. Take antibiotics until they are completely gone. You may take 1 tablet of pyridium every 8 hours as needed for symptoms. Return to the emergency department for fevers greater than 100.4 F, persistent vomiting, new or worsening abdominal, back or flank pain, black or bloody stools, inability urinate, hematuria, lightheadedness, passing out or other new or concerning symptoms. Prescriptions: New cephalexin [Keflex] 500 mg capsule 500 mg PO BID Qty: 20 RF: 0 No Action levothyroxine 75 mcg Tablet 75 mcg PO DAILY RF: 0 Referrals: Cynthia Khalil MD [Primary Care Provider] -
[2019-06-21 05:59] LABS: Bacteria Urine Occasional (0-1); RBC Urine 0-1/HPF (0-5/HPF); Squamous Epithelial Cell Urine 1-5 /HPF (0-5/HPF); WBC Urine 0-1/HPF (0-5/HPF)
[2019-06-21 06:00] LABS: Culture Indicated Urine Cult Not Indicated
[2019-06-21] MEDS: cephALEXin 250 MG PREPACK 1 BOTTLE MISC (06:01)
[2019-06-21] MEDS: PHENAZOPYRIDINE 100 MG PREPACK 1 BOTTLE MISC (06:01)
== END 2019-06-21 06:04 | disposition home or self-care (01) ==
PROVIDERS: Emergency Provider Emergency Medicine; PCP Family Medicine
DX: N10 Acute pyelonephritis (principal)
CPT/HCPCS: 81003; 81015; 81025; 99282

== ENCOUNTER 2019-06-25 10:16 | Emergency (ER) | payer OTHER, SELFPAY ==
[2019-06-25 10:21] VITALS: BMI 28.3
[2019-06-25 10:24] VITALS: BP 128/71; PULSE 72; RESP 16; TEMP 36.8; O2SAT 99
[2019-06-25 10:37] LABS: Add Manual Diff / Slide Review NO; Basophils Absolute Auto 100 /uL (0-100); Basophils Percent Auto 1.9 % (0-2); Eosinophils Absolute Auto 100 /uL (0-450); Eosinophils Percent Auto 1.6 % (2-4); Hematocrit 33.9 % (36-46); Lymphocytes Absolute Auto 1400 /uL (1100-4500); Lymphocytes Percent Auto 30.7 % (25-40); Mean Corpuscular HGB Conc 32.5 % (30-36); Mean Corpuscular Hemoglobin 23.8 PG (26-34); Mean Corpuscular Volume 73.4 fL (80-100); Monocytes Absolute Auto 400 /uL (0-900); Monocytes Percent Auto 7.7 % (3-14); Neutrophils Absolute Auto 2600 /uL (1500-7000); Neutrophils Percent Auto 58.1 % (50-75); Platelet Count 293 X10^3/uL (150-400); Red Blood Cell Count 4.62 X10^6/uL (4.0-5.2); Red Cell Distribution Width 18.9 % (11.6-14.8); White Blood Cell Count 4.6 X10^3/uL (4.5-11.0)
[2019-06-25 10:42] LABS: Prothrombin Time 11.8 SECONDS (10.1-12.7)
[2019-06-25 10:45] LABS: PTT Partial Thromboplastin Tim 35 SECONDS (26.4-36.2)
[2019-06-25 10:46] LABS: Alanine Aminotransferase 18 IU/L (<35); Albumin 4.8 g/dL (3.5-5.0); Albumin Globulin Ratio 1.3 (1.0-2.8); Alkaline Phosphatase 56 U/L (38-126); Aspartate Aminotransferase 29 IU/L (14-36); BUN Creatinine Ratio 13.8 (6-22); Bilirubin Total 0.5 mg/dL (0.2-1.3); Blood Urea Nitrogen 11 mg/dL (7-17); Calcium 9.5 mg/dL (8.4-10.2); Carbon Dioxide 26 mmol/L (22-32); Chloride 101 mmol/L (98-107); Estimated Glomerular Filt Rate > 60.0 mL/min (>60); Globulin 3.8 g/dL (1.7-4.1); Glucose 96 mg/dL (70-100); HEMOLYSIS < 15 (0-50); Lipase 75 U/L (23-300); Potassium 3.9 mmol/L (3.4-5.1); Sodium 137 mmol/L (137-145); Total Protein 8.6 g/dL (6.3-8.2)
--- NOTE | 2019-06-25 10:54 | ED.ABDPAIN ---
HPI - Abdominal Pain General Chief Complaint: Abdominal Pain Stated Complaint: Abdominal pain Time Seen by Provider: 06/25/19 10:48 Source: patient Mode of arrival: Ambulatory History of Present Illness HPI narrative: The patient is a 49-year-old female with abdominal and flank pain. It has been ongoing for about 2 weeks. She said it initially started in her right flank she thought she had a kidney infection she was seen [place] the [place] they did a urine which she said was negative. However her left flank started hurting it is radiating around to her stomach. She feels bloated sometimes nauseous she really has had decreased appetite. No change in bowel have. No fevers or chills. She was seen and evaluated here on 06/21/2019, diagnosed with pyelonephritis and started on Kedione MUNOZ complaint: abdominal pain and flank pain Onset (ago): week(s) (2) Related Data Home Medications Medication Instructions Recorded Confirmed iron 1 tab PO DAILY 06/25/19 06/25/19 levothyroxine [Synthroid] 112 mcg PO DAILY 06/25/19 06/25/19 magnesium 1 tab PO DAILY 06/25/19 06/25/19 Previous Rx's Medication Instructions Recorded levofloxacin [Levaquin] 750 mg PO DAILY #7 tab 06/25/19 Allergies Allergy/AdvReac Type Severity Reaction Status Date / Time Sulfa (Sulfonamide Allergy Severe RASH, Verified 06/25/19 10:21 Antibiotics) VOMITING [SULFA (SULFONAMIDE ANTIBIOTICS)] morphine [MORPHINE] Allergy Intermediate VOMITING Verified 06/25/19 10:21 Review of Systems Review of Systems Narrative: GENERAL: Denies chills, fatigue, malaise, fever, sweats, travel HEENT: Denies sinus pain, ear pain, sore throat, difficulty swallowing, neck pain RESPIRATORY: Denies dyspnea, cough, wheezing, hemoptysis, sputum. CARDIOVASCULAR: Denies chest pain, palpitations, orthopnea, edema GASTROINTESTINAL: Denies nausea, vomiting, abdominal pain, diarrhea, constipation, melena. : HPI MUSCULOSKELETAL: Denies weakness, joint pain, or bony pain SKIN: No rash, no erythema, no pruritus NEUROLOGIC: Denies weakness, dizziness, headache, numbness, change in speech, confusion PSYCHIATRIC: No concerning psychosocial issues. 12 point review of systems is negative except for those stated above and HPI Patient History Medical History Anemia (Acute) Ankle fracture (Resolved) Graves disease (Chronic) Surgical History H/O thyroidectomy (Resolved) Social History Smoking Status: Never smoker alcohol intake frequency: 0-2 drinks per day Substance Use Type: does not use Exam Initial Vital Signs Initial Vital Signs: Vital Signs Temperature 98.2 F 06/25/19 10:24 Pulse Rate 72 06/25/19 10:24 Respiratory Rate 16 06/25/19 10:24 Blood Pressure 128/71 06/25/19 10:24 Pulse Oximetry 99 06/25/19 10:24 GENERAL: Well-appearing, well-nourished and in no acute distress. HEENT: Head atraumatic,EOMI, pupils reactive, face symmetric, moist mucous membranes CARDIOVASCULAR: Regular rate and rhythm without murmurs, rubs or gallops. RESPIRATORY: Breath sounds equal bilaterally, no wheezes rales or rhonchi. ABDOMEN: Soft, nontender. Normoactive bowel sounds all 4 quadrants. No guarding or rebound. : Mild left CVA tenderness EXTREMITIES: Normal range of motion, no clubbing or edema. Neurovascularly intact NEUROLOGICAL: Alert and oriented x4.Normal gait and speech. SKIN: Warm, dry, no laceration, no petechiae, no rashes or lesions. Course Orders Ordered: ED Orders 06/25/19 10:22 Complete Blood Count AUTO DIFF Stat Comprehensive Metabolic Panel Stat Lipase Stat Partial Thromboplastin Time Stat Prothrombin Time INR Stat 06/25/19 10:23 EKG-12 Lead Stat 06/25/19 11:23 CT abdomen pelvis w con Stat Vital Signs Vital signs: Vital Signs - 8 hr 06/25/19 10:24 06/25/19 12:18 Temperature 98.2 F Pulse Rate 72 71 Respiratory Rate 16 14 Blood Pressure [Left Arm] 128/71 107/71 Pulse Oximetry 99 100 MDM - Abdominal Pain Lab Data Attestation: I reviewed the patient's lab results. Result diagrams: 06/25/19 10:22 06/25/19 10:22 Labs: Lab Results 11/21/19 11/21/19 11/21/19 Range/Units 10:22 10:22 10:22 WBC 4.6 (4.5-11.0) X10^3/uL RBC 4.62 (4.0-5.2) X10^6/uL Hgb 11.0 L (12.0-16.0) g/dL Hct 33.9 L (36-46) % MCV 73.4 L (80-100) fL MCH 23.8 L (26-34) PG MCHC 32.5 (30-36) % RDW 18.9 H (11.6-14.8) % Plt Count 293 (150-400) X10^3/uL Neut % (Auto) 58.1 (50-75) % Lymph % (Auto) 30.7 (25-40) % [place] % (Auto) 7.7 (3-14) % Eos % (Auto) 1.6 L (2-4) % Baso % (Auto) 1.9 (0-2) % Neut # (Auto) 2600 (4477-3474) /uL Lymph # (Auto) 1400 (0556-3449) /uL Sherman # (Auto) 400 (0-900) /uL Eos # (Auto) 100 (0-450) /uL Baso # (Auto) 100 (0-100) /uL PT 11.8 (10.1-12.7) SECONDS INR 1.0 (0.9-1.3) APTT 35 (26.4-36.2) SECONDS Sodium 137 (137-145) mmol/L Potassium 3.9 (3.4-5.1) mmol/L Chloride 101 (98-107) mmol/L Carbon Dioxide 26 (22-32) mmol/L BUN 11 (7-17) mg/dL Creatinine 0.80 (0.52-1.04) mg/dL Estimated GFR > 60.0 (>60) mL/min BUN/Creatinine Ratio 13.8 (6-22) Glucose 96 (70-100) mg/dL Calcium 9.5 (8.4-10.2) mg/dL Total Bilirubin 0.5 (0.2-1.3) mg/dL AST 29 (14-36) IU/L ALT 18 (<35) IU/L Alkaline Phosphatase 56 (38-126) U/L Total Protein 8.6 H (6.3-8.2) g/dL Albumin 4.8 (3.5-5.0) g/dL Globulin 3.8 (1.7-4.1) g/dL Albumin/Globulin Ratio 1.3 (1.0-2.8) Lipase 75 (23-300) U/L Point of care testing: Point of Care Testing Test Results Negative Urine Dip Bedside Urine Glucose Negative Bedside Urine Bilirubin - Negative Bedside Urine Ketone - Negative Urine Specific [place] 1.015 Bedside Urine Occult Blood - Negative Bedside Urine pH 6.0 Bedside Urine Protein - Negative Bedside Urine Urobilinogen - Negative Bedside Urine Nitrite - Negative Bedside Urine Leukocytes - Negative Esterase Imaging Data CT scan - abdomen: Radiologist's impression: PROCEDURE: CT ABDOMEN PELVIS W CON INDICATIONS: persistant abdominal pain more left flank TECHNIQUE: After the administration of intravenous contrast, 5 mm thick sections acquired from the diaphragm to the symphysis. 5 mm coronal and sagittal reformats were acquired. For radiation dose reduction, the following was used: automated exposure control, adjustment of mA and/or kV according to patient size. COMPARISON: [facility], CT, CT KIDNEY URETER BLADDER (KUB), 01/17/2018, 20:10. [facility], US, US ABDOMEN COMPLETE, 04/26/2019, 10:55. FINDINGS: Image quality: Excellent. ABDOMEN: Lung bases: There is mild dependent atelectasis. Heart size is normal. Solid organs: There is mild focal fatty infiltration in the anterior left hepatic lobe along the falciform ligament. The gallbladder appears within normal limits without calcified gallstones. Biliary system is non-dilated. Pancreas enhances normally. No peripancreatic fat stranding or fluid collections. No pancreatic duct dilatation. The spleen is at the upper limits of normal in size measuring up to 12.6 cm. No adrenal nodules. There is mild left pelvocaliectasis without an obstructing stone visualized. There is a small nonobstructing stone within the inferior pole of the left kidney measuring 2-3 mm. The ureters are normal in caliber. No ureteral stone visualized. Peritoneum and bowel: Bowel loops demonstrate normal wall thickness and caliber. No evidence of appendicitis. There is colonic diverticulosis without acute diverticulitis. No free fluid or air. Nodes and vessels: No retroperitoneal or mesenteric adenopathy by size criteria. Aorta and inferior vena cava are normal in size. Miscellaneous: No ventral hernias. PELVIS: Genitourinary: Bladder wall thickness is normal. The uterus is mildly enlarged and hyperemic compatible with physiologic changes. There is a small right ovarian cyst measuring up to 1.6 cm likely representing a follicular cyst. No Miscellaneous: No inguinal hernias or adenopathy. Bones: No suspicious bony lesions. No vertebral body compression fractures. IMPRESSION: 1. Minimal pelvocaliectasis of the left renal collecting system without hydroureter or a discrete obstructing stone. Findings are of indeterminate clinical significance and correlation is recommended clinically including with urinalysis. 2. Small nonobstructing left renal stone. 3. Colonic diverticulosis without acute diverticulitis. Dictated by: Josep Grubbs M.D. on 06/25/2019 at 11:34 MDM Narrative Medical decision making narrative: The CT does show some inflammation of the left kidney urine is clean. She was given Keflex which apparently she only took a couple of doses and then stopped. Will put her on Levaquin as a stronger antibiotic to see if that helps. She is not septic she is afebrile no leukocytosis. I also discussed with her possibility of gastric ulcer and needing EGD. Discharge Plan Departure Patient Disposition: Home Clinical Impression: Pyelonephritis Discharge Date/Time: 06/25/19 12:23 Instructions: Kidney Infection Activity Restrictions/Additional Instructions: *You have been diagnosed with kidney infection *What to do: It does appear that you have a small kidney infection. You may require an EGD to identify and diagnose stomach ulcer. However at this time CT scan does indicate that you have a mild kidney infection. *Continue to take medications as directed Levaquin 750 mg once daily for 7 days Stop taking Keflex *Follow up with your primary care provider in 2-3 days *Return to ER if you should have increased pain, unable to keep antibiotics down or any new, worsening or concerning symptoms Prescriptions: New levofloxacin [Levaquin] 750 mg tablet 750 mg PO DAILY Qty: 7 RF: 0 No Action levothyroxine [Synthroid] 112 mcg tablet 112 mcg PO DAILY RF: 0 iron 1 tab PO DAILY RF: 0 magnesium 1 tab PO DAILY RF: 0 Referrals: Cynthia Khalil MD [Primary Care Provider] -
--- NOTE | 2019-06-25 11:23 | DI.CT.S_ITS ---
PROCEDURE: CT ABDOMEN PELVIS W CON INDICATIONS: persistant abdominal pain more left flank TECHNIQUE: After the administration of intravenous contrast, 5 mm thick sections acquired from the diaphragm to the symphysis. 5 mm coronal and sagittal reformats were acquired. For radiation dose reduction, the following was used: automated exposure control, adjustment of mA and/or kV according to patient size. COMPARISON: [facility], CT, CT KIDNEY URETER BLADDER (KUB), 01/17/2018, 20:10. [facility], US, US ABDOMEN COMPLETE, 04/26/2019, 10:55. FINDINGS: Image quality: Excellent. ABDOMEN: Lung bases: There is mild dependent atelectasis. Heart size is normal. Solid organs: There is mild focal fatty infiltration in the anterior left hepatic lobe along the falciform ligament. The gallbladder appears within normal limits without calcified gallstones. Biliary system is non-dilated. Pancreas enhances normally. No peripancreatic fat stranding or fluid collections. No pancreatic duct dilatation. The spleen is at the upper limits of normal in size measuring up to 12.6 cm. No adrenal nodules. There is mild left pelvocaliectasis without an obstructing stone visualized. There is a small nonobstructing stone within the inferior pole of the left kidney measuring 2-3 mm. The ureters are normal in caliber. No ureteral stone visualized. Peritoneum and bowel: Bowel loops demonstrate normal wall thickness and caliber. No evidence of appendicitis. There is colonic diverticulosis without acute diverticulitis. No free fluid or air. Nodes and vessels: No retroperitoneal or mesenteric adenopathy by size criteria. Aorta and inferior vena cava are normal in size. Miscellaneous: No ventral hernias. PELVIS: Genitourinary: Bladder wall thickness is normal. The uterus is mildly enlarged and hyperemic compatible with physiologic changes. There is a small right ovarian cyst measuring up to 1.6 cm likely representing a follicular cyst. No Miscellaneous: No inguinal hernias or adenopathy. Bones: No suspicious bony lesions. No vertebral body compression fractures. IMPRESSION: 1. Minimal pelvocaliectasis of the left renal collecting system without hydroureter or a discrete obstructing stone. Findings are of indeterminate clinical significance and correlation is recommended clinically including with urinalysis. 2. Small nonobstructing left renal stone. 3. Colonic diverticulosis without acute diverticulitis. Dictated by: Josep Grubbs M.D. on 06/25/2019 at 11:34 Approved by: Josep Grubbs M.D. on 06/25/2019 at 11:40
[2019-06-25 12:18] VITALS: BP 107/71; PULSE 71; RESP 14; O2SAT 100
== END 2019-06-25 12:23 | disposition home or self-care (01) ==
PROVIDERS: Emergency Provider Emergency Medicine; PCP Family Medicine
DX: N12 Tubulo-interstitial nephritis, not specified as acute or chronic (principal)
CPT/HCPCS: 36415; 74177; 80053; 81003; 81025; 83690; 85025; 85610; 85730; 99283; 99285; Q9967

== ENCOUNTER 2019-07-17 16:38 | Emergency (ER) | payer OTHER, SELFPAY ==
[2019-07-17 16:46] VITALS: BP 114/76; PULSE 67; RESP 15; TEMP 36.9; O2SAT 100; BMI 29.9
--- NOTE | 2019-07-17 18:12 | DI.US.S_ITS ---
PROCEDURE: US ABDOMEN COMPLETE INDICATIONS: R abdomen pain with nausea, bloating, belching TECHNIQUE: Real-time scanning was performed of the abdominal and retroperitoneal organs, with image documentation. COMPARISON: [facility], , US ABDOMEN COMPLETE, 04/26/2019, 10:55. FINDINGS: Liver: Liver is normal in size and homogeneous in echotexture. Gallbladder: No gallstone is seen. No gallbladder wall thickening or pericholecystic fluid. No sonographic Hubbard's sign. Biliary ducts: Intrahepatic bile ducts are non-dilated. Extrahepatic bile duct caliber measures 4 mm. Normal is 6-7 mm or less in diameter, or 10 mm or less post-cholecystectomy. Pancreas: Visualized portions of the pancreas are sonographically normal. Spleen: Spleen is normal in size and homogeneous in echotexture. Kidneys: Kidneys are normal in size and echotexture. Right kidney measures 10.9 cm long; left kidney measures 10.9 cm long. Mild prominence of left renal pelvis is seen. No right sided hydronephrosis. Punctate echogenic focus in lower pole of left kidney is also noted measures 2 mm in size. Aorta: Visualized aorta is normal in caliber at less than 3 cm. Iliacs: Proximal common iliac arteries are normal in caliber at less than 2.5 cm. IVC: Intrahepatic inferior vena cava is patent. Miscellaneous: No free abdominal fluid. IMPRESSION: 1. Mild left-sided hydronephrosis. Suggestion of a 2 mm nonobstructing left renal stone. No right sided hydronephrosis. 2. Normal appearing liver, gallbladder, spleen, and visualized portion of pancreas. No biliary ductal dilatation. Dictated by: Jeremy Lopez M.D. on 07/17/2019 at 20:07 Approved by: Jeremy Lopez M.D. on 07/17/2019 at 20:12
[2019-07-17 18:57] LABS: Add Manual Diff / Slide Review NO; Basophils Absolute Auto 100 /uL (0-100); Basophils Percent Auto 1.4 % (0-2); Eosinophils Absolute Auto 200 /uL (0-450); Eosinophils Percent Auto 2.4 % (2-4); Hematocrit 30.6 % (36-46); Hemoglobin 9.9 g/dL (12.0-16.0); Lymphocytes Absolute Auto 2300 /uL (1100-4500); Lymphocytes Percent Auto 34.5 % (25-40); Mean Corpuscular HGB Conc 32.3 % (30-36); Mean Corpuscular Hemoglobin 23.3 PG (26-34); Monocytes Absolute Auto 500 /uL (0-900); Monocytes Percent Auto 6.9 % (3-14); Neutrophils Absolute Auto 3600 /uL (1500-7000); Neutrophils Percent Auto 54.8 % (50-75); Platelet Count 284 X10^3/uL (150-400); Red Blood Cell Count 4.25 X10^6/uL (4.0-5.2); Red Cell Distribution Width 17.7 % (11.6-14.8); White Blood Cell Count 6.6 X10^3/uL (4.5-11.0)
[2019-07-17] MEDS: PANTOPRAZOLE 40 MG VIAL IV (18:58)
[2019-07-17] MEDS: MAG HYDROX/ALUMINUM/SIMETH SUS 20 ML, LIDOCAINE VISCOUS 2% 15 ML PO (18:58)
[2019-07-17] MEDS: SODIUM CHLORIDE 0.9% 1,000 ML 1000 ML IV (18:58)
[2019-07-17 19:09] LABS: Alanine Aminotransferase 17 IU/L (<35); Albumin 4.2 g/dL (3.5-5.0); Albumin Globulin Ratio 1.3 (1.0-2.8); Alkaline Phosphatase 52 U/L (38-126); Aspartate Aminotransferase 25 IU/L (14-36); BUN Creatinine Ratio 16.7 (6-22); Bilirubin Total 0.4 mg/dL (0.2-1.3); Blood Urea Nitrogen 10 mg/dL (7-17); Calcium 8.9 mg/dL (8.4-10.2); Carbon Dioxide 25 mmol/L (22-32); Chloride 104 mmol/L (98-107); Estimated Glomerular Filt Rate > 60.0 mL/min (>60); Globulin 3.3 g/dL (1.7-4.1); Glucose 94 mg/dL (70-100); HEMOLYSIS < 15 (0-50); Lipase 59 U/L (23-300); Potassium 3.8 mmol/L (3.4-5.1); Sodium 137 mmol/L (137-145); Total Protein 7.5 g/dL (6.3-8.2)
--- NOTE | 2019-07-17 20:06 | ED.ABDPAIN ---
HPI - Abdominal Pain <LATOYA Adan - Last Filed: 07/17/19 21:42> General Chief Complaint: Urogenital-Female Stated Complaint: KIDNEY PAIN Time Seen by Provider: 07/17/19 17:51 Source: patient Mode of arrival: Ambulatory Limitations: no limitations History of Present Illness HPI narrative: This is a 49-year-old female, nonsmoker, who presents to ED with chief complain of right upper quadrant abdominal pain which radiates to back also she reports right lower quadrant pain near groin. Patient also has associated symptoms as decreased appetite, pain increases after eating, belching, feeling bloated, upset stomach, nausea, chills, feeling fatigued. Patient denies fever, breathing difficulty or dizziness. She has decreased her solid intake due to discomfort after each eating. Patient has history of GERD and eliminated coffee and fatty food which are the triggers for her symptoms. Patient also reports a fluttering sensation in her chest. Last bowel movement was today and was a bit constipated from toasts and bland diet. She was seen in ED about 3 weeks ago and diagnosed at that time with small left kidney stone, small right ovarian cyst, and treated with Levaquin. Patient reports after she completed antibiotic medication the pain recurred the next day 07/05/19. Patient noticed yesterday and this morning , pink discoloration when she wiped after the urination. Related Data Home Medications Medication Instructions Recorded Confirmed iron 1 tab PO DAILY 06/25/19 06/25/19 levothyroxine [Synthroid] 112 mcg PO DAILY 06/25/19 06/25/19 magnesium 1 tab PO DAILY 06/25/19 06/25/19 Previous Rx's Medication Instructions Recorded levofloxacin [Levaquin] 750 mg PO DAILY #7 tab 06/25/19 ondansetron 4 mg PO TID-QID PRN #10 tab 07/17/19 pantoprazole [Protonix] 40 mg PO DAILY #20 tab 07/17/19 Allergies Allergy/AdvReac Type Severity Reaction Status Date / Time Sulfa (Sulfonamide Allergy Severe RASH, Verified 07/17/19 16:46 Antibiotics) VOMITING [SULFA (SULFONAMIDE ANTIBIOTICS)] morphine [MORPHINE] Allergy Intermediate VOMITING Verified 07/17/19 16:46 Review of Systems <LATOYA Adan - Last Filed: 07/17/19 21:42> Review of Systems Narrative: General: See HPI HEENT: Denies sinus pain, ear pain, sore throat, difficulty swallowing, dizziness. Respiratory: Denies dyspnea, cough, wheezing, hemoptysis, sputum. Cardiovascular: Chest fluttering sensation. Denies chest pain, palpitations, orthopnea, edema. Gastrointestinal: See HPI : See HPI Musculoskeletal: Denies weakness, joint pain or bony pain. Skin: Denies rash, skin lesions, or other. Neurologic: Denies weakness, headache, numbness, change in speech, confusion, seizures, incoordination. Psychiatric: No concerning psychosocial issues. 12-point review of systems is negative except for those stated above. Patient History <LATOYA Adan - Last Filed: 07/17/19 21:42> Medical History Anemia (Acute) Ankle fracture (Resolved) Graves disease (Chronic) Kidney stone (Acute) Ovarian cyst (Acute) Surgical History H/O thyroidectomy (Resolved) Social History Smoking Status: Never smoker Smoking Status: Never smoker alcohol intake frequency: holidays/special occasions only Substance Use Type: does not use Exam <LATOYA Adan - Last Filed: 07/17/19 21:42> Narrative Exam Narrative: GEN: Alert, oriented x 3, well appearing and nourished, and in no acute distress. Head: Normal cephalic, atraumatic. No scalp or temporal tenderness, palpable mass or rash. EYES: Pupils are equal, round, and reactive to light and accommodation. Extraocular muscles are intact bilaterally. There is no subconjunctival hemorrhage, exudate and sclera non-icteric. ENT: Bilateral auditory canals and tympanic membranes clear. Hearing grossly intact. Nose without bleeding, purulent discharge or deviation. Facial sinuses nontender to palpate. Mucous membrane moist, no mucosal lesion. Throat without erythema, tonsillar hypertrophy or exudate. Uvula in midline, airway patent. Neck: Trachea in midline. No JVD, non-tender without lymphadenopathy. No masses or thyroid megaly. Supple, non-tender and no meningeal signs. CARDIAC: Normal regular rate and rhythm without murmurs, gallops, or rubs. No chest wall tenderness. No peripheral edema, cyanosis or pallor. Capillary refill is less than 2 seconds. RESPIRATORY: Lungs are clear to auscultate bilaterally. No cough, wheezes, rales, or rhonchi. No stridor, respiratory distress, increase work of breathing, or accessary muscle used. ABD: Right upper and lower quadrant discomfort to palpate. Abdomen soft and non-distended. No guarding or rebound tenderness to palpate. Bowel sounds are normal in all 4 quadrants. There is no palpable masses or organomegaly. EXT: Full painless ROM of all extremities with no loss of sensation, strength, effusion or edema. SKIN: Warm, dry, normal color for patient. No erythema, lesions or rash over visible areas. BACK: Nontender without deformity or crepitance. No flank tenderness. NEUROLOGICAL: Alert and oriented to place, time and person. Sensation and motor function intact bilaterally. No facial droops, dysphasia. PSYCHIATRIC: Good judgement and reason, without hallucinations, abnormal affect or abnormal behaviors during the examination. Initial Vital Signs Initial Vital Signs: Vital Signs Temperature 98.5 F 07/17/19 16:46 Pulse Rate 67 07/17/19 16:46 Respiratory Rate 15 07/17/19 16:46 Blood Pressure 114/76 07/17/19 16:46 Pulse Oximetry 100 07/17/19 16:46 <Shukri Pierre DO - Last Filed: 07/18/19 01:29> Initial Vital Signs Initial Vital Signs: Vital Signs Temperature 98.5 F 07/17/19 16:46 Pulse Rate 67 07/17/19 16:46 Respiratory Rate 15 07/17/19 16:46 Blood Pressure 114/76 07/17/19 16:46 Pulse Oximetry 100 07/17/19 16:46 Scores <LATOYA Adan - Last Filed: 07/17/19 21:42> GCS Kate coma scale eye opening: Spontaneous [place] coma scale verbal response: Orientated [place] coma scale motor response: Obey commands Kate coma scale total score: 15 HEART Score Heart Score history: Slightly Suspicious Heart Score EKG: Normal Heart Score Age: 45-64 years old Heart Score risk factors: No known risk factors Heart Score troponin: < or = to normal limit Heart Score Total: 1 Course <Babak LATOYA Trevino - Last Filed: 07/17/19 21:42> Orders Ordered: ED Orders 07/17/19 18:12 US abdomen complete Stat 07/17/19 18:33 EKG-12 Lead Stat 07/17/19 18:35 Complete Blood Count AUTO DIFF Stat Comprehensive Metabolic Panel Stat Lipase Stat Troponin & CK Cardiac Panel Stat Discontinued Medications Al Hydrox/Mg Hydrox/Simethicone 20 ml/ Lidocaine HCl 15 ml 0 ml PO NOW ONE Stop: 07/17/19 18:15 Last Admin: 07/17/19 18:58 Dose: 15 ml Documented by: CRISTINOOTEM Sodium Chloride (Normal Saline 0.9%) 1,000 mls @ 1,000 mls/hr IV CONT IGNACIO Last Infusion: 07/17/19 20:21 Dose: 0 mls/hr Documented by: Admin: 07/17/19 18:58 Dose: 1,000 mls/hr Documented by: SIM Pantoprazole Sodium (Protonix) 40 mg IV NOW ONE Stop: 07/17/19 18:15 Last Admin: 07/17/19 18:58 Dose: 40 mg Documented by: SIM Vital Signs Vital signs: Vital Signs - 8 hr 07/17/19 21:35 Pulse Rate 62 Blood Pressure 105/73 Pulse Oximetry 98 <Shukri Pierre DO - Last Filed: 07/18/19 01:29> Orders Ordered: ED Orders 07/17/19 18:12 US abdomen complete Stat 07/17/19 18:33 EKG-12 Lead Stat 07/17/19 18:35 Complete Blood Count AUTO DIFF Stat Comprehensive Metabolic Panel Stat Lipase Stat Troponin & CK Cardiac Panel Stat Discontinued Medications Al Hydrox/Mg Hydrox/Simethicone 20 ml/ Lidocaine HCl 15 ml 0 ml PO NOW ONE Stop: 07/17/19 18:15 Last Admin: 07/17/19 18:58 Dose: 15 ml Documented by: KBROTEM Sodium Chloride (Normal Saline 0.9%) 1,000 mls @ 1,000 mls/hr IV CONT IGNACIO Last Infusion: 07/17/19 20:21 Dose: 0 mls/hr Documented by: Admin: 07/17/19 18:58 Dose: 1,000 mls/hr Documented by: SIM Pantoprazole Sodium (Protonix) 40 mg IV NOW ONE Stop: 07/17/19 18:15 Last Admin: 07/17/19 18:58 Dose: 40 mg Documented by: SIM Vital Signs Vital signs: Vital Signs - 8 hr 07/17/19 21:35 Pulse Rate 62 Blood Pressure 105/73 Pulse Oximetry 98 MDM - Abdominal Pain <Babak LATOYA Trevino - Last Filed: 07/17/19 21:42> Differential Diagnosis Differential diagnosis: Likely acute appendicitis, calculus of kidney, pancreatitis and other (Cholecystitis, gastritis) Medical Records Attestation: I reviewed the patient's medical records. Lab Data Attestation: I reviewed the patient's lab results. Result diagrams: 07/17/19 18:35 07/17/19 18:35 Labs: Lab Results 07/17/19 07/17/19 07/17/19 Range/Units 18:35 18:35 18:35 WBC 6.6 (4.5-11.0) X10^3/uL RBC 4.25 (4.0-5.2) X10^6/uL Hgb 9.9 L (12.0-16.0) g/dL Hct 30.6 L (36-46) % MCV 72.0 L (80-100) fL MCH 23.3 L (26-34) PG MCHC 32.3 (30-36) % RDW 17.7 H (11.6-14.8) % Plt Count 284 (150-400) X10^3/uL Neut % (Auto) 54.8 (50-75) % Lymph % (Auto) 34.5 (25-40) % [place] % (Auto) 6.9 (3-14) % Eos % (Auto) 2.4 (2-4) % Baso % (Auto) 1.4 (0-2) % Neut # (Auto) 3600 (0825-8285) /uL Lymph # (Auto) 2300 (0332-9982) /uL [place] # (Auto) 500 (0-900) /uL Eos # (Auto) 200 (0-450) /uL Baso # (Auto) 100 (0-100) /uL Sodium 137 (137-145) mmol/L Potassium 3.8 (3.4-5.1) mmol/L Chloride 104 (98-107) mmol/L Carbon Dioxide 25 (22-32) mmol/L BUN 10 (7-17) mg/dL Creatinine 0.60 (0.52-1.04) mg/dL Estimated GFR > 60.0 (>60) mL/min BUN/Creatinine Ratio 16.7 (6-22) Glucose 94 (70-100) mg/dL Calcium 8.9 (8.4-10.2) mg/dL Total Bilirubin 0.4 (0.2-1.3) mg/dL AST 25 (14-36) IU/L ALT 17 (<35) IU/L Alkaline Phosphatase 52 (38-126) U/L Total Creatine Kinase 58 (30-135) U/L CK-MB (CK-2) TNP CK-MB (CK-2) Rel Index TNP Troponin I < 0.012 (0.01-0.034) ng/mL Total Protein 7.5 (6.3-8.2) g/dL Albumin 4.2 (3.5-5.0) g/dL Globulin 3.3 (1.7-4.1) g/dL Albumin/Globulin Ratio 1.3 (1.0-2.8) Lipase 59 (23-300) U/L Point of care testing: Point of Care Testing Test Results Negative Urine Dip Bedside Urine Glucose Negative Bedside Urine Bilirubin - Negative Bedside Urine Ketone - Negative Urine Specific [place] 1.005 Bedside Urine Occult Blood - Negative Bedside Urine pH 6.0 Bedside Urine Protein - Negative Bedside Urine Urobilinogen - Negative Bedside Urine Nitrite - Negative Bedside Urine Leukocytes - Negative Esterase Imaging Data US-Abdomen complete: Radiologist's impression: [address] [id number] Ultrasound Report Signed Patient: Mallory Lenz [facility]#: [id number] : 1970Acct:[id number] Age/Sex: 49 / FDate of Service: 07/17/19 Loc: ED Accession Number: [id number] Procedure: US abdomen complete Ordering Provider: Babak Trevino PROCEDURE: US ABDOMEN COMPLETE INDICATIONS: R abdomen pain with nausea, bloating, belching TECHNIQUE: Real-time scanning was performed of the abdominal and retroperitoneal organs, with image documentation. COMPARISON: [facility], US, US ABDOMEN COMPLETE, 04/26/2019, 10:55. FINDINGS: Liver: Liver is normal in size and homogeneous in echotexture. Gallbladder: No gallstone is seen. No gallbladder wall thickening or pericholecystic fluid. No sonographic Hubbard's sign. Biliary ducts: Intrahepatic bile ducts are non-dilated. Extrahepatic bile duct caliber measures 4 mm. Normal is 6-7 mm or less in diameter, or 10 mm or less post-cholecystectomy. Pancreas: Visualized portions of the pancreas are sonographically normal. Spleen: Spleen is normal in size and homogeneous in echotexture. Kidneys: Kidneys are normal in size and echotexture. Right kidney measures 10.9 cm long; left kidney measures 10.9 cm long. Mild prominence of left renal pelvis is seen. No right sided hydronephrosis. Punctate echogenic focus in lower pole of left kidney is also noted measures 2 mm in size. Aorta: Visualized aorta is normal in caliber at less than 3 cm. Iliacs: Proximal common iliac arteries are normal in caliber at less than 2.5 cm. IVC: Intrahepatic inferior vena cava is patent. Miscellaneous: No free abdominal fluid. IMPRESSION: 1. Mild left-sided hydronephrosis. Suggestion of a 2 mm nonobstructing left renal stone. No right sided hydronephrosis. 2. Normal appearing liver, gallbladder, spleen, and visualized portion of pancreas. No biliary ductal dilatation. Dictated by: Jeremy Lopez M.D. on 07/17/2019 at 20:07 Approved by: Jeremy Lopez M.D. on 07/17/2019 at 20:12 ECG Data Attestation: I personally reviewed and interpreted this ECG as follows: Prior ECG tracings: available for review Interpretation: Sinus rhythm rate at 62. Normal [place] No ST elevation/depression P are interval 168, QRS normal, QT/QTC 418/425 MDM Narrative Medical decision making narrative: This is a 49-year-old female who presents to ED with epigastric discomfort, nausea, chills, , upset stomach increasing belching and bloated abdomen, decreased appetite, constipation and feeling fatigued. Patient recently was treated with a course of Levaquin for kidney infection/stone, a short duration of Keflex. Patient has a history of anemia and stop taking iron pill during the course of antibiotic medication thinking doesn't want to upset her stomach and kidney. Patient has been having recurring headaches and has been taking ljhx-bsv-aoiehle migraine medication frequently. Physical abdominal exam was not consistent for appendicitis. H&H today was 9.9/30.6 when compared to 06/25/19 as 11.0/33.9. Unremarkable CMP and normal cardiac enzymes. EKG was sinus rhythm. Urine test result without indication of infection or blood. Patient was medicated with IV fluid, pantoprazole, Zofran, GI cocktail. Patient reports improved symptoms after these medications. Ultrasound test on abdomen does show left-sided hydronephrosis with 2 mm of nonobstructing renal stone with normal appearing liver, gallbladder and spleen. The patient pain is likely due to exacerbation of gastritis/gastric ulcer from recent increasing NSAIDs use for recurring headache and patient advised to follow with PCP for a referral for an EGD. Patient advised to restart iron pill for recurring anemia. Patient discharged to home with Protonix, Zofran as needed and advised to use oafh-pwk-ianwvzj anti acid medications as needed. Patient also advised to use probiotics as given recent antibiotic medication therapy to with Levaquin and lower GI symptoms. Strict return precautions were discussed with the patient and patient verbalized understanding and agrees with the treatment plan. <Shukri Pierre, - Last Filed: 07/18/19 01:29> Lab Data Labs: Lab Results 07/17/19 07/17/19 07/17/19 Range/Units 18:35 18:35 18:35 WBC 6.6 (4.5-11.0) X10^3/uL RBC 4.25 (4.0-5.2) X10^6/uL Hgb 9.9 L (12.0-16.0) g/dL Hct 30.6 L (36-46) % MCV 72.0 L (80-100) fL MCH 23.3 L (26-34) PG MCHC 32.3 (30-36) % RDW 17.7 H (11.6-14.8) % Plt Count 284 (150-400) X10^3/uL Neut % (Auto) 54.8 (50-75) % Lymph % (Auto) 34.5 (25-40) % [place] % (Auto) 6.9 (3-14) % Eos % (Auto) 2.4 (2-4) % Baso % (Auto) 1.4 (0-2) % Neut # (Auto) 3600 (0245-5129) /uL Lymph # (Auto) 2300 (3242-9523) /uL [place] # (Auto) 500 (0-900) /uL Eos # (Auto) 200 (0-450) /uL Baso # (Auto) 100 (0-100) /uL Sodium 137 (137-145) mmol/L Potassium 3.8 (3.4-5.1) mmol/L Chloride 104 (98-107) mmol/L Carbon Dioxide 25 (22-32) mmol/L BUN 10 (7-17) mg/dL Creatinine 0.60 (0.52-1.04) mg/dL Estimated GFR > 60.0 (>60) mL/min BUN/Creatinine Ratio 16.7 (6-22) Glucose 94 (70-100) mg/dL Calcium 8.9 (8.4-10.2) mg/dL Total Bilirubin 0.4 (0.2-1.3) mg/dL AST 25 (14-36) IU/L ALT 17 (<35) IU/L Alkaline Phosphatase 52 (38-126) U/L Total Creatine Kinase 58 (30-135) U/L CK-MB (CK-2) TNP CK-MB (CK-2) Rel Index TNP Troponin I < 0.012 (0.01-0.034) ng/mL Total Protein 7.5 (6.3-8.2) g/dL Albumin 4.2 (3.5-5.0) g/dL Globulin 3.3 (1.7-4.1) g/dL Albumin/Globulin Ratio 1.3 (1.0-2.8) Lipase 59 (23-300) U/L Point of care testing: Point of Care Testing Test Results Negative Urine Dip Bedside Urine Glucose Negative Bedside Urine Bilirubin - Negative Bedside Urine Ketone - Negative Urine Specific [place] 1.005 Bedside Urine Occult Blood - Negative Bedside Urine pH 6.0 Bedside Urine Protein - Negative Bedside Urine Urobilinogen - Negative Bedside Urine Nitrite - Negative Bedside Urine Leukocytes - Negative Esterase Discharge Plan Departure Patient Disposition: Home Clinical Impression: Gastritis Qualifiers: Gastritis type: unspecified gastritis Chronicity: acute Gastritis bleeding: presence of bleeding unspecified Qualified Code(s): K29.00 - Acute gastritis without bleeding Discharge Date/Time: 07/17/19 21:35 Instructions: DI for Kidney Stones, DI for Ovarian Cyst, DI for Gastritis Activity Restrictions/Additional Instructions: You have been diagnosed with [gastric ulcer, anemia, known left side kidney stone and right ovarian cyst. The EKG was normal today and cardiac enzymes were negative today. The epigastric discomfort is likely from gastritis/gastric ulcer which could be from taking frequent NSAIDs. The blood test showes recurring anemia and today H/H was 9.9 and 30.6. The electrolytes were unremarkable. Urine does not indicate infection. Your symptoms were improved after treated with IV Protonix, Zofran, GI cocktail, and IV fluid] What to do: *Take your medications as directed. Please restart iron pill as soon as possible. Please take Zofran as needed for nausea. Protonix 40 mg daily for gastric discomfort and ulcer. Please avoid taking NSAIDS at this time and rather take Tylenol products. You also can add [id number] antiacid medications such as Mylanta or Maalox. The prescriptions have been transmitted to [facility]. *Follow up with your primary care provider in 2-3 days, call for an appointment. Let them know you were seen in the ED and that we asked you to be seen in follow up. *Return to ED if you have any new, worsening, or concerning symptoms, such as chest pain, breathing difficulty, fainting episodes, vomiting blood or blood in her stool, unable to tolerate fluids, or any acute concerns Prescriptions: New ondansetron 4 mg tablet,disintegrating 4 mg PO TID-QID PRN (Reason: nausea and vomiting) Qty: 10 RF: 0 pantoprazole [Protonix] 40 mg tablet,delayed release (DR/EC) 40 mg PO DAILY Qty: 20 RF: 0 No Action levothyroxine [Synthroid] 112 mcg tablet 112 mcg PO DAILY RF: 0 iron 1 tab PO DAILY RF: 0 magnesium 1 tab PO DAILY RF: 0 levofloxacin [Levaquin] 750 mg tablet 750 mg PO DAILY Qty: 7 RF: 0 Referrals: [facility] [Outside] Cynthia Khalil MD [Primary Care Provider] - <Shukri Pierre, DO - Last Filed: 07/18/19 01:29> Sign Out Provider Sign Out Attestation: Dr Pierre Co-Sign Statement: I was available for consultation during this patient's emergency department visit. This chart is signed by myself for administrative purposes only. I did not have direct contact with this patient during this visit. They were seen independently by the APC.
[2019-07-17 20:37] LABS: Creatine Kinase 58 U/L (30-135)
[2019-07-17 20:50] LABS: Troponin I < 0.012 ng/mL (0.01-0.034)
[2019-07-17 21:35] VITALS: BP 105/73; PULSE 62; O2SAT 98
== END 2019-07-17 21:35 | disposition home or self-care (01) ==
PROVIDERS: Emergency Provider Nurse Practitioner Family; PCP Family Medicine
DX: K29.00 Acute gastritis without bleeding (principal); N83.201 Unspecified ovarian cyst, right side; N20.0 Calculus of kidney
CPT/HCPCS: 36415; 76700; 80053; 81003; 81025; 82550; 83690; 84484; 85025; 93005; 93010; 96361; 96374; 99284; 99285; C9113